=== PATIENT | female | born 1975 | race Caucasian/White ===

== ENCOUNTER → 2020-08-08 | Outpatient (CLI) | payer OTHER, SELFPAY ==
[2020-08-08 18:03] LABS: Anion Gap 7 (5-15); BUN 19 mg/dL (7-18); BUN/Creat Ratio 25.2 RATIO (10-20); Calcium,Total 8.7 mg/dL (8.5-10.1); Chloride 106 mmol/L (98-107); Creatinine, Serum 0.76 mg/dL (0.55-1.02); EST Glomerular Filtration Rate 89 mL/min (>60); Est Glom Filt Rate - Afr Amer 108 mL/min (>60); Glucose 85 mg/dL (74-106); Potassium 3.8 mmol/L (3.5-5.1); Sodium Level 141 mmol/L (136-145)
== END | disposition home or self-care (01) ==
LOC: MFPLAB 15:32
PROVIDERS: PCP Family Medicine; Referring Provider Family Medicine; Visit Provider Family Medicine
DX: I10 Essential (primary) hypertension (principal)
CPT/HCPCS: 36415; 80048

== ENCOUNTER → 2020-11-03 | Outpatient (CLI) | payer OTHER, SELFPAY | END | disposition home or self-care (01) | PROVIDERS: PCP Family Medicine; Referring Provider Registered Nurse; Visit Provider Registered Nurse | DX: B34.9 Viral infection, unspecified (principal) | CPT/HCPCS: 87635; U0003 ==

== ENCOUNTER → 2021-10-03 08:23 | Outpatient (CLI) | payer OTHER, SELFPAY ==
[2021-10-03 10:15] LABS: Hematocrit 40.3 % (37-47); Hemoglobin 13.1 g/dL (12.0-15.0); Mean Corp Hgb Conc 32.5 g/dL (32-36); Mean Corpuscular Hgb 29.5 pg (27.0-32.0); Mean Corpuscular Volume 90.8 fL (81-99); Mean Platelet Vol. 12.3 fl (6.2-12.0); Platelet Count 185 K/mm3 (150-450); RBC Distribution Width CV 12.6 % (11.6-14.6); RBC Distribution Width SD 42.1 fl (35.1-43.9); Red Blood Count 4.44 M/mm3 (4.2-5.4)
[2021-10-03 10:43] LABS: Anion Gap 5 (5-15); BUN 25 mg/dL (7-18); BUN/Creat Ratio 35.2 RATIO (10-20); Calcium,Total 9.1 mg/dL (8.5-10.1); Chloride 112 mmol/L (98-107); Cholesterol 168 mg/dL (200); Creatinine, Serum 0.71 mg/dL (0.55-1.02); EST Glomerular Filtration Rate 95 mL/min (>60); Est Glom Filt Rate - Afr Amer 115 mL/min (>60); Glucose 108 mg/dL (74-106); High Density Lipoprotein 35 mg/dL; Potassium 3.8 mmol/L (3.5-5.1); Sodium Level 143 mmol/L (136-145); Thyroid Stim Hormone (TSH) 1.43 uIU/mL (0.358-3.74); Triglycerides 135 mg/dL; Very Low Density Lipoprotein 27 mg/dL (5-40)
[2021-10-03 11:37] LABS: Vitamin D,25 Hydroxy 21.7 ng/mL
== END ==
PROVIDERS: PCP Family Medicine; Referring Provider Family Medicine; Visit Provider Family Medicine
DX: I10 Essential (primary) hypertension (principal); D64.9 Anemia, unspecified; Z13.29 Encounter for screening for other suspected endocrine disorder; Z13.220 Encounter for screening for lipoid disorders; Z13.21 Encounter for screening for nutritional disorder
CPT/HCPCS: 36415; 80048; 80061; 82306; 84443; 85027

== ENCOUNTER 2022-01-07 15:37 | Outpatient (CLI) | payer OTHER, SELFPAY ==
[2022-01-11 16:56] LABS: HPV Reflexed? NOT INDICATED
== END 2022-01-07 23:59 | disposition home or self-care (01) ==
LOC: LABSPEC 15:38
PROVIDERS: PCP Family Medicine; Visit Provider Nurse Practitioner Family
DX: Z12.4 Encounter for screening for malignant neoplasm of cervix (principal)
CPT/HCPCS: 88175; G0145

== ENCOUNTER 2022-01-24 07:58 | Outpatient (CLI) | payer OTHER, SELFPAY ==
--- NOTE | 2022-01-24 08:02 | BI_ITS ---
MAMMOGRAPHY - BILATERAL SCREENING REASON FOR EXAM: Female, 46 years old. Routine annual screening examination. PERTINENT HISTORY: Non-contributory. TECHNIQUE: Digital bilateral breast vinay (3D mammographic acquisition) in the CC and MLO projections. 2-D mediolateral oblique (MLO) and craniocaudad (CC) views of both breasts were obtained. CAD: Full Field Digital Mammography with Computer Added Detection was performed. COMPARISON: No comparison mammograms available at this time. If any prior films become available, an addendum to this report can be generated. FINDINGS: Breast Composition: The breasts are heterogeneously dense, which may obscure small masses. There are no dominant masses or suspicious calcifications. Benign-appearing bilateral axillary lymph nodes. No other significant abnormalities are identified. There has been no significant change since the prior study. BI/SCRN MAMM (CAD)W/VINAY BILAT IMPRESSION: Stable bilateral screening mammogram. Yearly follow-up mammogram recommended. (A) ASSESSMENT CATEGORY: BIRADS Category 2: Benign. A letter regarding these results will be sent to the patient by the facility within 30 days. Approximately 10% of breast cancers are not detected by mammography. A normal mammogram should not delay biopsy of a clinically suspicious abnormality. [id number] Electronically Signed: Syed Goldman MD at 8:59 EDT ,
== END 2022-01-24 23:59 | disposition home or self-care (01) ==
LOC: OPBI 07:59
PROVIDERS: PCP Family Medicine; Referring Provider Nurse Practitioner Family; Visit Provider Nurse Practitioner Family
DX: Z12.31 Encounter for screening mammogram for malignant neoplasm of breast (principal)
CPT/HCPCS: 77063; 77067

== ENCOUNTER 2022-04-29 16:42 | Emergency (ER) | payer OTHER, SELFPAY ==
[2022-04-29 16:43] VITALS: BP 182/95; PULSE 68; RESP 14; TEMP 36.9; O2SAT 100; BMI 30.8
--- NOTE | 2022-04-29 17:13 | EKG12_ITS ---
Test Reason : sob Blood Pressure : / mmHG Vent. Rate : 063 BPM Atrial Rate : 063 BPM P-R Int : 182 ms QRS Dur : 098 ms QT Int : 436 ms P-R-T Axes : 046 -05 -09 degrees QTc Int : 446 ms Normal sinus rhythm Minimal voltage criteria for LVH, may be normal variant ( Cipriano product ) Poor R wave progression Confirmed by TAMMY WHITAKER, CHARO ([id number]), editorial intern MADDIE HUBER ([id number]) on 05/01/2022 10:45:11 AM Referred By: Confirmed By:CHARO MUNOZ MD
--- NOTE | 2022-04-29 17:42 | EDS_ITS ---
HPI History of Present Illness Chief Complaint: Dizziness Narrative Narrative: 46 year old female presenting with vertiginous dizziness. She states it started acutely while sitting at her desk. She states she went to the bathroom and when she sat down the dizziness became worse. She states it is improved now. No acute on set headache. No fever, chills, neck pain or stiffness. She denies chest pain or shortness of breath. No vision changes. PFSH PFS Medical History Anxiety HTN (hypertension) Home Medications meclizine 25 mg tablet 25 mg PO TID PRN dizziness #30 tabs 04/29/22 [Rx Last Taken Unknown] promethazine 12.5 mg tablet 12.5 mg PO TID PRN nausea and vomiting #30 tabs 04/29/22 [Rx Last Taken Unknown] Allergy/AdvReac Type Severity Reaction Status Date / Time No Known Allergies Allergy Verified 04/29/22 16:45 Social History Smoking Status: Never smoker ROS ROS ED Constitutional Constitutional ED: Denies chills or fever(s) Eyes Eyes: Denies change in vision or diplopia ENT ENT ED: Denies rhinorrhea or sore throat Cardiovascular Cardiovascular: Denies chest pain or palpitations Respiratory/Chest Respiratory/Chest: Denies cough or dyspnea Gastrointestinal Gastrointestinal: Reports nausea; Denies abdominal pain, constipation or diarrhea Genitourinary Genitourinary ED: Denies dysuria or hematuria Musculoskeletal Musculoskeletal: Denies arthralgias, back pain or neck pain Integumentary Denies abscess or Abrasions Neurologic Neurologic: Reports headache(s) and other Details: dizziness Psychiatric Psychiatric: Denies anxiety or depression EXAM Physical Exam Const Vital Signs: 04/29/22 16:43 04/29/22 16:46 04/29/22 18:35 Temperature 98.5 F 98.9 F Temperature Source Temporal Pulse Rate 68 88 Respiratory Rate 14 14 Respiratory Pattern Normal Blood Pressure 182/95 H 128/78 H Blood Pressure Mean 124 Pulse Ox 100 100 Oxygen Delivery Method Room Air Positive well nourished General Appearance ED: NAD; Negative for pallor HEENT Reports moist mucous membranes HEENT Narrative: Nystagmus and vertiginous dizziness with camilla hallpike Negative for trauma Eyes PERRL and EOMs intact bilaterally Chest Wall inspection of chest normal Resp normal respiratory effort Cardio regular rate and regular rhythm GI normal to inspection, nondistended, normoactive bowel sounds Neuro oriented x3, CN's II-XII intact bilaterally and no sensory deficits noted Sensorium / Orientation: alert Motor Exam: strength 5/5 throughout Psych mental status grossly normal Skin no rashes or lesions noted and no wounds General Skin Exam: Negative for jaundice or pallor MDM MDM MDM Narrative Medical decision making narrative: Patient presenting with dizziness. On examination she has positive Camilla- Hallpike. Patient treated with meclizine and Phenergan. On reevaluation her dizziness is resolved. She is ambulating back and forth to the bathroom. I do not believe she needs any blood work or imaging. Patient counseled she has benign positional vertigo. She will follow-up with her PCP to ensure resolution. Impression: 1. Benign positional vertigo Discharge Plan Triage Chief Complaint: Dizziness ED Provider: Donovan Mercado Dx/Rx/DC Orders Instructions: ED BPV Vertigo Prescriptions: New meclizine 25 mg tablet 25 mg PO TID PRN (Reason: dizziness) Qty: 30 0RF promethazine 12.5 mg tablet 12.5 mg PO TID PRN (Reason: nausea and vomiting) Qty: 30 0RF Rx Instructions: 3 doses during day; last dose no later than 4 hr before bedtime Primary Care Provider: Dinesh Bowen Referrals: Dinesh Bowen MD [Primary Care Provider] - Disposition Disposition: Home, Self Care Discharge Date/Time: 04/29/22 18:36
[2022-04-29] MEDS: Meclizine HCl 25 MG Tablet PO (17:53)
[2022-04-29] MEDS: proMETHazine 25 MG Tablet 12.5 MG PO (17:53)
[2022-04-29 18:35] VITALS: BP 128/78; PULSE 88; RESP 14; TEMP 37.2; O2SAT 100
== END 2022-04-29 18:36 | disposition home or self-care (01) ==
PROVIDERS: Emergency Provider Student in an Organized Health Care Education/Training Program; PCP Family Medicine; Visit Provider Student in an Organized Health Care Education/Training Program
DX: H81.10 Benign paroxysmal vertigo, unspecified ear (principal); I10 Essential (primary) hypertension; Z79.899 Other long term (current) drug therapy
CPT/HCPCS: 93005; 99283

== ENCOUNTER → 2023-07-10 | Outpatient (CLI) | payer OTHER, SELFPAY ==
--- NOTE | 2023-07-10 16:27 | US_ITS ---
STUDY: THYROID ULTRASOUND REASON FOR EXAM: Female, 47 years old. NODULE-RT TECHNIQUE: Ultrasound evaluation of the thyroid was performed with real-time and static crook-scale imaging. COMPARISON: None. FINDINGS: RIGHT LOBE: The right lobe of the thyroid gland is enlarged and measures 5.2 cm x 2.7 cm x 2.3 cm. There is a homogeneous echotexture. There is a 3.4 cm x 3.1 cm x 2 cm septated cystic nodule with thick rim. Biopsy is recommended. LEFT LOBE: The left lobe of the thyroid gland measures 4.9 cm x 1.5 cm x 1.5 cm. There is a homogeneous echotexture. There are no demonstrated solid, cystic or complex lesions. ISTHMUS: The isthmus measures 1 mm. The regional lymph nodes are normal. US/Thyroid IMPRESSION: Enlarged right lobe of the thyroid. 5.2 cm x 2.77 x 2.3 cm nodular cystic nodule with a thickened rim. Tissue sample is recommended. Electronically Signed: Syed Goldman MD at 14:53 EDT ,
== END | disposition home or self-care (01) ==
LOC: US 16:25
PROVIDERS: PCP Family Medicine; Referring Provider Family Medicine; Visit Provider Family Medicine
DX: E04.1 Nontoxic single thyroid nodule (principal)
CPT/HCPCS: 76536

== ENCOUNTER → 2023-07-14 | Outpatient (CLI) | payer OTHER, SELFPAY ==
[2023-07-14 10:54] LABS: Vitamin D,25 Hydroxy 46.8 ng/mL
[2023-07-14 11:28] LABS: Anion Gap 7 (5-15); BUN 18 mg/dL (7-18); BUN/Creat Ratio 26.5 RATIO (10-20); Calcium,Total 8.4 mg/dL (8.5-10.1); Chloride 107 mmol/L (98-107); Cholesterol 170 mg/dL (200); Creatinine, Serum 0.68 mg/dL (0.55-1.02); EST Glomerular Filtration Rate 99 mL/min (>60); Est Glom Filt Rate - Afr Amer 120 mL/min (>60); Glucose 99 mg/dL (74-106); High Density Lipoprotein 33 mg/dL; Potassium 3.7 mmol/L (3.5-5.1); Sodium Level 138 mmol/L (136-145); Thyroid Stim Hormone (TSH) 1.49 uIU/mL (0.358-3.74); Triglycerides 147 mg/dL; Very Low Density Lipoprotein 29 mg/dL (5-40)
== END | disposition home or self-care (01) ==
LOC: MFPLAB 08:26
PROVIDERS: PCP Family Medicine; Visit Provider Family Medicine
DX: E04.1 Nontoxic single thyroid nodule (principal); Z13.1 Encounter for screening for diabetes mellitus; Z13.220 Encounter for screening for lipoid disorders; E55.9 Vitamin D deficiency, unspecified
CPT/HCPCS: 36415; 80048; 80061; 82306; 84439; 84443

== ENCOUNTER → 2023-08-06 | Outpatient (CLI) | payer OTHER, SELFPAY ==
--- NOTE | 2023-08-05 | FLU_PTH ---
PATIENT: MADHURI EDEN LOC: [facility] U#:[id number] AGE/SX: 48/F ROOM: RE08/06/[address]: Dr. Kendall Wilson MD : 1975 BED: DIS: 08/06/2023 SPEC #: [id number] RECD: 08/06/23 09:15 STATUS: [place] REGloria #: [id number] DARLYN: 08/05/23 00:[address]: Kendall Wilson DEPT: CYTOLOGY RECD BY: Paxton Benson ENTERED: 08/06/23 09:16 SP TYPE: Fluid OTHR DR: Dr. Richard Bowen MD Tissues: A - Thyroid gland, NOS B - Thyroid gland, NOS C - Thyroid gland, NOS Procedures: Special Stain Group II Surgery Specimen Level IV Cytospin Fluid HEADER OPERATION: Fine needle aspiration, right thyroid nodule PRE-OP DIAGNOSIS: Right thyroid nodule TISSUE SUBMITTED: A - Right thyroid nodule fluid, B - Right thyroid nodule fluid, C - Right thyroid nodule x4 slides DIAGNOSIS CYTOLOGY A. Fine needle aspiration, right thyroid nodule (cytospin and cell block): Negative for malignant cells. See comment. B. Fine needle aspiration, right thyroid nodule (cytospin and cell block): Negative for malignant cells. See comment. C. Fine needle aspiration, right thyroid nodule (smears): Consistent with benign follicular nodule ([place] Category II). See comment. AM:inocencio 08/07/2023 COMMENT A. The specimen contains rare macrophages and scattered acute and chronic inflammatory cells. Follicular cells are not present. Clinical correlation is suggested. B. The specimen contains rare follicular cells. Clinical correlation is suggested. C. The [place] System for thyroid diagnostic categorization was used in the evaluation of this case. CYTOLOGY STUDY Slides are reviewed. CYTOLOGY GROSS A - Received is 35 ml of red cloudy fluid labeled with the patient's name and and designated per the requisition as right thyroid nodule. Submitted for cytology preparation including cell block. B - Received is 35 ml of red cloudy fluid labeled with the patient's name and and designated per the requisition as right thyroid nodule. Submitted for cytology preparation including cell block. C - Received are four smears labeled with the patient's name and designated per the requisition as right thyroid nodule. Submitted for staining. / inocencio 08/06/2023 TC:5 CPT: 78502 x2, 21424 x3
== END | disposition home or self-care (01) ==
PROVIDERS: PCP Family Medicine; Referring Provider Surgery; Visit Provider Surgery
DX: E04.1 Nontoxic single thyroid nodule (principal)
CPT/HCPCS: 88108; 88305; 88313

== ENCOUNTER → 2024-07-20 | Outpatient (CLI) | payer OTHER, SELFPAY ==
--- NOTE | 2024-07-20 08:45 | US_ITS ---
STUDY: THYROID ULTRASOUND REASON FOR EXAM: Female, 48 years old. nodule TECHNIQUE: Ultrasound evaluation of the thyroid was performed with real-time and static crook-scale imaging. COMPARISON: 07/10/2023 FINDINGS: RIGHT LOBE: The right lobe of the thyroid gland measures 5.5 x 2.5 x 2.2 cm. There is a homogeneous echotexture. Nodule 1: No change in the 28 x 24 x 21 mm mixed cystic and solid hypoechoic wider than tall ill-defined margins nodule with no echogenic foci (TR 3) in the right lobe for which ultrasound-guided biopsy is recommended if never performed. LEFT LOBE: The left lobe of the thyroid gland measures 4.4 x 1.3 x 1.4 cm. There is a homogeneous echotexture. There are no demonstrated solid, cystic or complex lesions. ISTHMUS: The isthmus measures 2 mm thick. . The regional lymph nodes are normal. US/Thyroid IMPRESSION: No change in dominant nodule in the right lobe for which ultrasound-guided biopsy is recommended if never performed. Follow-up ultrasound is recommended in 1 year. Electronically Signed: Barney Duque MD at 8:42 EDT ,
== END | disposition home or self-care (01) ==
PROVIDERS: PCP Family Medicine; Referring Provider Surgery; Visit Provider Surgery
DX: E04.1 Nontoxic single thyroid nodule (principal)
CPT/HCPCS: 76536

== ENCOUNTER → 2024-07-29 | Outpatient (CLI) | payer OTHER, SELFPAY ==
--- NOTE | 2024-07-29 07:59 | BI_ITS ---
MAMMOGRAPHY - BILATERAL SCREENING REASON FOR EXAM: Female, 48 years old. Routine annual screening examination. PERTINENT HISTORY: Non-contributory. TECHNIQUE: Digital bilateral breast vinay (3D mammographic acquisition) in the CC and MLO projections. 2-D mediolateral oblique (MLO) and craniocaudad (CC) views of both breasts were obtained. CAD: Full Field Digital Mammography with Computer Added Detection was performed. COMPARISON: Comparison is made with prior study January 24, 2022. FINDINGS: Breast Composition: The breasts are heterogeneously dense, which may obscure small masses. There are no dominant masses or suspicious calcifications. Stable bilateral fat containing axillary lymph nodes. No other significant abnormalities are identified. There has been no significant change since the prior study. BI/SCRN MAMM (CAD)W/VINAY BILAT IMPRESSION: Stable bilateral screening mammogram. Yearly follow-up mammogram recommended. (A) ASSESSMENT CATEGORY: BIRADS Category 2: Benign. A letter regarding these results will be sent to the patient by the facility within 30 days. Approximately 10% of breast cancers are not detected by mammography. A normal mammogram should not delay biopsy of a clinically suspicious abnormality. [id number] Electronically Signed: Syed Goldman MD at 8:54 EDT ,
== END | disposition home or self-care (01) ==
LOC: OPBI 07:57
PROVIDERS: PCP Family Medicine; Referring Provider Family Medicine; Visit Provider Family Medicine
DX: Z12.31 Encounter for screening mammogram for malignant neoplasm of breast (principal)
CPT/HCPCS: 77063; 77067

== ENCOUNTER → 2025-01-18 | Outpatient (CLI) | payer OTHER, SELFPAY ==
[2025-01-18 13:07] LABS: ALB/GLOB Ratio 1.6 RATIO (0.9-2.4); AST(SGOT) 20 U/L (<=31); Alanine Aminotransfer ALT/SGPT 16 U/L (<=34); Albumin, Serum 4.1 g/dL (3.5-5.0); Alkaline Phosphatase 74 U/L (35-104); Anion Gap 10 (5-15); BUN 18 mg/dL (4-19); BUN/Creat Ratio 24.7 RATIO (10-20); Calcium,Total 9.1 mg/dL (7.6-11.0); Carbon Dioxide 23.9 mmol/L (21.0-32.0); Chloride 106 mmol/L (98-108); Cholesterol 177 mg/dL (<=200); Creatinine, Serum 0.72 mg/dL (0.70-1.20); EST Glomerular Filtration Rate 104 (>60); Globulin 2.6 g/dL (2.2-4.2); Glucose 106 mg/dL (70-99); High Density Lipoprotein 37 mg/dL; Low Density Lipoprotein Calc. 109 mg/dL; Potassium 4.1 mmol/L (3.3-5.1); Protein, Total 6.7 g/dL (5.9-8.4); Sodium Level 140 mmol/L (133-145); Total Bilirubin 0.46 mg/dL (0.00-1.30); Triglycerides 158 mg/dL; Very Low Density Lipoprotein 32 mg/dL (5-40); Vitamin D,25 Hydroxy 18.9 ng/mL (30-100)
== END | disposition home or self-care (01) ==
LOC: MTLAB 08:08
PROVIDERS: PCP Family Medicine; Referring Provider Family Medicine; Visit Provider Family Medicine
DX: E04.1 Nontoxic single thyroid nodule (principal); I10 Essential (primary) hypertension
CPT/HCPCS: 36415; 80053; 80061; 82306; 84439; 84443; 84481

== ENCOUNTER → 2025-08-02 | Outpatient (CLI) | payer OTHER, SELFPAY ==
[2025-08-02 19:27] LABS: Free T3 2.9 pg/mL (2.18-3.98); Vitamin D,25 Hydroxy 30.0 ng/mL (30-100)
== END | disposition home or self-care (01) ==
LOC: MFPLAB 16:51
PROVIDERS: PCP Family Medicine; Visit Provider Family Medicine
DX: E04.1 Nontoxic single thyroid nodule (principal)
CPT/HCPCS: 36415; 82306; 84439; 84481

== ENCOUNTER → 2025-08-09 | Outpatient (CLI) | payer OTHER, SELFPAY ==
--- NOTE | 2025-08-09 16:24 | BI_ITS ---
EXAM: SCRN MAMM (CAD)W/VINAY BILAT DATE: 08/09/2025 CLINICAL HISTORY: F, Age 50 y/o , SCREEN No family history. TECHNIQUE: Procedure Code: [id number] Modality: MG Procedure: SCRN MAMM (CAD)W/VINAY BILAT COMPARISON: Prior exam(s) dated July 29, 2024.. FINDINGS: TISSUE DENSITY: The breasts are heterogeneously dense, which may obscure small masses. Bilateral Breast Mammographic Findings: There is a 9.4 mm well-defined nodule in the upper lateral aspect of the left breast. Sonographic correlation recommended. No cluster of microcalcification is seen. BI/SCRN MAMM (CAD)W/VINAY BILAT IMPRESSION: 9.4 mm well-defined nodule in the upper lateral aspect of the left breast as de scribed above. Sonographic correlation recommended. OVERALL FINAL ASSESSMENT BI-RADS 0: INCOMPLETE - NEED ADDITIONAL IMAGING EVALUATION. RECOMMENDATION: Ultrasound Recommended Additional Recommendation none A letter with findings and recommendations will be mailed to the patient. Reading Location: [place] [id number]
== END | disposition home or self-care (01) ==
LOC: OPBI 16:23
PROVIDERS: PCP Family Medicine; Referring Provider Family Medicine; Visit Provider Family Medicine
DX: Z12.31 Encounter for screening mammogram for malignant neoplasm of breast (principal)
CPT/HCPCS: 77063; 77067

== ENCOUNTER → 2025-08-15 | Outpatient (CLI) | payer OTHER, SELFPAY ==
--- NOTE | 2025-08-15 13:39 | US_ITS ---
PROCEDURE: BREAST LIMITED UNILATERAL 08/15/2025 REASON FOR EXAM: F, Age 50 y/o , ABNORMAL MAMMOGRAM Mass seen in the upper-outer quadrant of the left breast, on her most recent mammogram study. Evaluate. COMPARISON: Mammogram studies dated 08/09/2025, 08/08/2024, and 01/24/2022. TECHNIQUE: Procedure Code: USBRSTLIMIT Modality: US Procedure: BREAST LIMITED UNILATERAL FINDINGS: There is a solid, smoothly marginated, hypoechoic mass in the left breast at the 1 o'clock, 6 cm from nipple position measuring 11 x 8 x 4 mm. This mass has an echogenic component. The mass is wider than it is tall and does not produce any posterior shadowing. It is most compatible with an intramammary lymph node and does correlate to the mass seen on the mammogram. There is a very minimal amount of blood flow to the mass. The mass is most compatible with an intramammary lymph node. US/Breast Limited Unilateral IMPRESSION: There is a solid, smoothly marginated, hypoechoic mass in the left breast at th e 1 o'clock, 6 cm from nipple position measuring 11 x 8 x 4 mm. This mass has an echogenic component. The mass is wider than it is tall and does not produce any posterior shadowing. It is most compatible with an intramammary lymph node and does is[place] elate to the mass seen on the mammogram. There is a very minimal amount of blood flow to the mass. The mass is most compatible wi th an intramammary lymph node. BI-RADS 2: BENIGN RECOMMENDATION: Routine annual follow-up in 1 Year Reading Location: [id number]
== END | disposition home or self-care (01) ==
LOC: OPUS 13:32
PROVIDERS: PCP Family Medicine; Referring Provider Family Medicine; Visit Provider Family Medicine
DX: R92.8 Other abnormal and inconclusive findings on diagnostic imaging of breast (principal); N63.21 Unspecified lump in the left breast, upper outer quadrant
CPT/HCPCS: 76642

== ENCOUNTER 2025-09-14 19:14 | Emergency (ER) | payer OTHER, SELFPAY ==
[2025-09-14 19:15] VITALS: BP 150/96; PULSE 80; RESP 16; TEMP 36.7; O2SAT 99; BMI 29.3
--- OUTSIDE RECORDS SUMMARY | 2025-09-14 19:53 | XMS RPT_ITS | CCD ---
Author Organization [facility] Inform ion Partnership [facility] Care Team Providers Care Top Closer Name Role Phone Dr. Dinesh Bowen Primary Care Provider Dr. Dinesh Bowen Referring Provider Ellen PICHARDO, PA Garima Gross Attending Provider Dr. Kendall Wilson Attending Provider Andrés WHITAKER, Dr. Ramos Primary Care Provider Andrés WHITAKER, Dr. Ramos Attending Provider Dr. Richard Bowen MD Referring Provider [phone] Richard Bowen Attending Unavailable Richard Bowen Referring Unavailable Richard Bowen Primary Care Unavailable Richard Bowen Attending Unavailable Richard Bowen Primary Care Unavailable Richard Bowen Attending Unavailable Richard Bowen Referring Unavailable Richard Bowen Primary Care Unavailable Richard Bowen Referring Unavailable Richard Bowen Primary Care Unavailable Richard Bowen Attending Unavailable Allergies Allergy Classification Reported Allergen(s) Allergy Type Date of Onset Reaction(s) Facility (2 sources) Lisinopril Drug Allergy 08-05-2023 Other [facility] Comment on above: Cough (1 source) Lisinopril Drug Allergy 08-05-2024 [facility] Repository Medications Current Medications Medication Drug Class(es) Dates Sig (Normalized) Sig (Original) atenolol 25 mg oral tablet (3 sources) beta-Adrenergic Avery Start: 07-05-2023 Atenolol 25 mg tablet Active mg PO July 05, 2023 12:00am Start: 07-05-2023 Atenolol Activ e MG PO July 05, 2023 12:00am citalopram 20 mg oral tablet (3 sources) Serotonin Reuptake Inhibitor Start: 07-05-2023 Citalopram 20 mg tablet Active mg PO July 05, 2023 12:00am Start: 07-05-2023 Citalopram Act colette MG PO July 05, 2023 12:00am irbesartan 300 mg oral tablet (2 sources) Angiotensin 2 Receptor Avery Start: 08-05-2023 take 1 tablet by mouth once daily Irbesartan 300 mg tablet Active 300 mg PO DAILY August 05, 2023 12:00am Completed/Discontinued Medications Medication Drug Class(es) Dates Sig (Normalized) Sig (Original) amoxicillin 500 mg oral tablet (3 sources) Penicillin-class Antibacterial Start: 07-05-2023 End: 08-05-2024 take 1 tablet by mouth twice daily Amoxicillin 500 mg tablet Discontinued 500 mg PO TWICE A DAY July 05, 2023 12:00am August 05, 2024 8:51am meclizine hydrochloride 25 mg oral tablet (4 sources) Antiemetic Start: 04-29-2022 End: 07-05-2023 take 1 tablet by mouth three times daily as needed for dizziness Meclizine 25 mg tablet Discontinued 25 mg PO THREE TIMES A DAY as needed for dizziness April 29, 2022 6:27pm July 05, 2023 10:07am promethazine hydrochloride 12.5 mg oral tablet (4 sources) Phenothiazine Start: 04-29-2022 End: 07-05-2023 take 3 tablets by mouth three times daily as needed for nausea and vomiting Promethazine 12.5 mg tablet Discontinued 12.5 mg PO THREE TIMES A DAY as needed for nausea and vomiting April 29, 2022 12:00am July 05, 2023 10:07am 3 doses during day; last dose no later than 4 hr before bedtime Problems Problem Classification Problem Date Documented Date Episodic/Chronic Other screening for suspected conditions (not mental disorders or infectious disease) (2 sources) Other abnormal and inconclusive findings on diagnostic imaging of breast; Translations: [Encounter for screening mammogram for malignant neoplasm of breast] Onset: 08-15-2025 Episodic Other upper respiratory infections (5 sources) Streptococcal sore throat; Translations: [Streptococcal pharyngitis] 07-05-2023 Episodic Thyroid disorders (4 sources) Thyroid nodule; Translations: [Nontoxic single thyroid nodule] Onset: 08-12-2025 08-05-2023 Chronic Comment on above: Patient 49-year-old female, historically euthyroid from an endocrine standpoint, who presents for surveillance of a right TI-RADS 3 nodule. Radiology reports that there has been no change to patient's dominant right-sided nodule, however, when compared to patient's previous dimensions it is significantly decreased in size. Radiology suggests consideration of ultrasound-guided biopsy if not previously completed, but patient completed biopsy last year with a benign result. Combining this with her confirmation that there has been no compressive symptomology and the decreased size in the nodule, I am recommending abiding by traditional ACR follow-up criteria which would have patient repeat an ultrasound for ongoing surveillance in 2 years. Mrs. Gomez is happy to proceed with this plan. I have recommended obtaining updated thyroid function testing for this year and she suggest that she is due for lab work for Dr. Bowen anyhow. We will look to add this as part of that mix. Results Test Name Value Interpretation Reference Range Facility Breast Limited Unilateralon 08-15-2025 Breast Limited Unilateral [facility] [address] [place] [address] Breast Limited Unilateral MR#: [id number] Acct: [id number] Name: MADHURI GOMEZ Rep #: [id number] : 1975 F 50 From: Eboni Magaña PCP: Dr. Richard Bowen MD Status: REG CLI Study: Breast Limited Unilateral Date of Exam: Exam# [id number] Ordering Dr: Richard Bowen PROCEDURE: BREAST LIMITED UNILATERAL 08/15/2025 REASON FOR EXAM: F, Age 50 y/o , ABNORMAL MAMMOGRAM Mass seen in the upper-outer quadrant of the left breast, on her most recent mammogram study. Evaluate. COMPARISON: Mammogram studies dated 08/09/2025, 08/08/2024, and 01/24/2022. TECHNIQUE: Procedure Code: USBRSTLIMIT Modality: US Procedure: BREAST LIMITED UNILATERAL FINDINGS: There is a solid, smoothly marginated, hypoechoic mass in the left breast at the 1 o'clock, 6 cm from nipple position measuring 11 x 8 x 4 mm. This mass has an echogenic component. The mass is wider than it is tall and does not produce any posterior shadowing. It is most compatible with an intramammary lymph node and does correlate to the mass seen on the mammogram. There is a very minimal amount of blood flow to the mass. The mass is most compatible with an intramammary lymph node. US/Breast Limited Unilateral IMPRESSION: There is a solid, smoothly marginated, hypoechoic mass in the left breast at the 1 o'clock, 6 cm from nipple position measuring 11 x 8 x 4 mm. This mass has an echogenic component. The mass is wider than it is tall and does not produce any posterior shadowing. It is most compatible with an intramammary lymph node and does correlate to the mass seen on the mammogram. There is a very minimal amount of blood flow to the mass. The mass is most compatible with an intramammary lymph node. BI-RADS 2: BENIGN RECOMMENDATION: Routine annual follow-up in 1 Year Reading Location: [facility] CC: Dr. Richard Bowen MD Animal Laboratory Helper: Signed Normal [facility] SCRN MAMM (CAD)W/VINAY BILATo n 08-09-2025 SCRN MAMM (CAD)W/VINAY BILAT [facility] [address] [place] [address] SCRN MAMM (CAD)W/VINAY BILAT MR#: [id number] Acct: [id number] Name: MADHURI GOMEZ Rep #: [id number] : 1975 F 50 From: Syed durbin MD PCP: Dr. Richard Bowen MD Status: REG CLI Study: SCRN MAMM (CAD)W/VINAY BILAT Date of Exam: 07/21 11/13 Exam# [id number] Ordering Dr: Richard Bowen EXAM: SCRN MAMM (CAD)W/VINAY BILAT DATE: 08/09/2025 CLINICAL HISTORY: F, Age 50 y/o , SCREEN No family history. TECHNIQUE: Procedure Code: BISMWCADBTOM Modality: MG Procedure: SCRN MAMM (CAD)W/VINAY BILAT COMPARISON: Prior exam(s) dated July 29, 2024.. FINDINGS: TISSUE DENSITY: The breasts are heterogeneously dense, which may obscure small masses. Bilateral Breast Mammographic Findings: There is a 9.4 mm well-defined nodule in the upper lateral aspect of the left breast. Sonographic correlation recommended. No cluster of microcalcification is seen. BI/SCRN MAMM (CAD)W/VINAY BILAT IMPRESSION: 9.4 mm well-defined nodule in the upper lateral aspect of the left breast as described above. Sonographic correlation recommended. OVERALL FINAL ASSESSMENT BI-RADS 0: INCOMPLETE - NEED ADDITIONAL IMAGING EVALUATION. RECOMMENDATION: Ultrasound Recommended Additional Recommendation none A letter with findings and recommendations will be mailed to the patient. Reading Location: [place] [address] CC: Dr. Richard Bowen MD Animal Laboratory Helper: Signed Normal [facility] Free T3on 08-02-2025 Free T3 [Mass/Vol] 2.9 pg/mL Normal 2.18-3.98 [facility] Comment on above: Order Comment: Order Date: 01/21/24 Order Info: 0786-1 - CMP Order Info: [id number] - LIPID Order Info: 3016-3 - TSH Performed By: #### L 506.0400, L506.1001, L501.45492 #### [facility] [address] [place], [place], [address] T4 Free Directon 08-02-2025 T4 FREE DIRECT 1.10 ng/dL Normal 0.76-1.46 [facility] Comment on above: Order Comment: WRONG VITD ORDERED Order Date: 08/05/24 Order Info: 3051-0 - T3F Order Info: 3024-7 - T4F Performed By: #### L 506.0400 #### [facility] [address] [place], [address] Vitamin D,25 Hydroxyon 08-02 Vitamin D 25-OH 30.0 ng/mL Normal 30-100 [facility] Comment on above: Order Comment: WRONG VITD ORDERED Order Date: 08/05/24 Order Info: 3051-0 - T3F Order Info: 3024-7 - T4F Result Comment: Jeanette min D Status Deficiency: <20 ng/mL (50nmol/L) Insufficiency: 20-30 ng/mL (50-75 nmol/L) Sufficiency: 30-100 ng/mL (75-250 nmol/L) Toxicity: >100 ng/mL (>250 nmol/L) Performed By: #### L 506.1001 #### [facility] [place], [id number] Anion gap in Serum or Plasma Ordered By: Richard Bowen on 01-18-2025 Anion gap [Moles/Vol] 10 mmol/L 5-15 [facility] BUN/creatinine ratioOrdered By: Richard Bowen on 01-18-2025 Urea nitrogen/Creatinine [Mass ratio] 24.7 mg/mg High 10-20 [facility] Bilirubin, totalOrdered By: Richard Bowen on 01-18-2025 Bilirubin [Mass/Vol] 0.46 mg/dL 0.00-1.30 [facility] Calculated very low density lipoprotein (VLDL) cholesterol measurementOrdered By: Richard Bowen on 01-18-2025 VLDL Cholesterol 32 mg/dL 5-40 [facility] Carbon dioxide, total [Moles /volume] in Central venous bloodOrdered By: Richard Bowen on 01-18-2025 CO2 [Moles/Vol] 23.9 mmol/L 21.0-32.0 [facility] Chloride assayOrdered By: Renee Bowen on 01-18-2025 Chloride [Moles/Vol] 106 mmol/L 98-108 [facility] Comprehensive Metabolic Prof ilon 01-18-2025 Albumin [Mass/Vol] 4.1 g/dL Normal 3.5-5.0 [facility] Comment on above: Order Comment: Order Date: 01/21/24 Order Info: 0786-1 - CMP Order Info: [id number] - LIPID Order Info: 3015-12 - TSH Performed By: #### L [id number], L500.4100, L500.4050 #### [facility] [address] [place], [address] Albumin/Globulin [Mass ratio] 1.6 {ratio} Normal 0.9-2.4 [facility] Comment on above: Order Comment: Order Date: 01/21/24 Order Info: 785- - CMP Order Info: - LIPID Order Info: 3015-12 - TSH Performed By: #### L [id number], L500.4100, L500.4050 #### [facility] [address] [place], [address] ALK PHOS 74 U/L Normal 35-104 [facility] Comment on above: Order Comment: Order Date: 01/21/24 Order Info: 785-10 - CMP Order Info: - LIPID Order Info: [id number] - TSH Performed By: #### L [id number], L500.4100, L500.4050 #### [facility] [address] [place], [address] ALT [Catalytic activity/Vol] 16 U/L Normal <=34 [facility] Comment on above: Order Comment: Order Date: 01/21/24 Order Info: 785-10 - CMP Order Info: - LIPID Order Info: 3015-12 - TSH Performed By: #### L [id number], L500.4100, L500.4050 #### [facility] [address] [place], [address] AST [Catalytic activity/Vol] 20 U/L Normal <=31 [facility] Comment on above: Order Comment: Order Date: 01/21/24 Order Info: 0786-1 - CMP Order Info: [id number] - LIPID Order Info: 3015-12 - TSH Performed By: #### L [id number], L500.4100, L500.4050 #### [facility] [address] [place], [address] Bilirubin [Mass/Vol] 0.46 mg/dL Normal 0.00-1.30 [facility] Comment on above: Order Comment: Order Date: 01/21/24 Order Info: 785- - CMP Order Info: [id number] - LIPID Order Info: 3015-3 - TSH Performed By: #### L 501.9520, L500.4100, L500.4050 #### [facility] [address] [place], [address] BUN/CRE 24.7 RATIO High 10-20 [facility] Comment on above: Order Comment: Order Date: 01/21/24 Order Info: 785- - CMP Order Info: - LIPID Order Info: 3 - TSH Performed By: #### L [id number], L500.4100, L500.4050 #### [facility] [address] [place], [address] Calcium [Mass/Vol] 9.1 mg/dL Normal 7.6-11.0 [facility] Comment on above: Order Comment: Order Date: 01/21/24 Order Info: 785-10 - CMP Order Info: [id number] - LIPID Order Info: 3015-3 - TSH Performed By: #### L [id number], L500.4100, L500.4050 #### [facility] [address] [place], [address] Chloride [Moles/Vol] 106 mmol/L Normal 98-108 [facility] Comment on above: Order Comment: Order Date: 01/21/24 Order Info: 1 - CMP Order Info: - LIPID Order Info: 3015-3 - TSH Performed By: #### L [id number], L500.4100, L500.4050 #### [facility] [address] [place], [address] CO2 [Moles/Vol] 23.9 mmol/L Normal 21.0-32.0 [facility] Comment on above: Order Comment: Order Date: 01/21/24 Order Info: 785-10 - CMP Order Info: [id number] - LIPID Order Info: 3 - TSH Performed By: #### L 501.9520, L500.4100, L500.4050 #### [facility] [address] [place], [address] Creatinine [Mass/Vol] 0.72 mg/dL Normal 0.70-1.20 [facility] Comment on above: Order Comment: Order Date: 01/21/24 Order Info: 785-10 - CMP Order Info: - LIPID Order Info: 3015-12 - TSH Performed By: #### L 501.9520, L500.4100, L500.4050 #### [facility] [address] [place], [address] GAP 10 Normal 5-15 [facility] Comment on above: Order Comment: Order Date: 01/21/24 Order Info: 785-10 - CMP Order Info: - LIPID Order Info: 3015-12 - TSH Performed By: #### L 501.9520, L500.4100, L500.4050 #### [facility] [address] [place], [address] GFR/1.73 sq M.predicted among non-blacks MDRD (S/P/Bld) [Vol rate/Area] 104 mL/min/{1.73_m2} Normal >60 [facility] Comment on above: Order Comment: Order Date: 01/21/24 Order Info: 785-10 - CMP Order Info: - LIPID Order Info: 3 - TSH Result Comment: mL/m in/1.73m2 CKD-EPI Creatinine Equation (2020) Performed By: #### L [id number], L500.4100, L500.4050 #### [facility] [address] [place], [address] Globulin (S) [Mass/Vol] 2.6 g/dL Normal 2.2-4.2 [facility] Comment on above: Order Comment: Order Date: 01/21/24 Order Info: 785-10 - CMP Order Info: [id number] - LIPID Order Info: 3 - TSH Performed By: #### L [id number], L500.4100, L500.4050 #### [facility] [address] [place], [address] Glucose [Mass/Vol] 106 mg/dL High 70-99 [facility] Comment on above: Order Comment: Order Date: 01/21/24 Order Info: 785-10 - CMP Order Info: - LIPID Order Info: 3015-12 - TSH Performed By: #### L 501.9520, L500.4100, L500.4050 #### [facility] [address] [place], [address] Potassium [Moles/Vol] 4.1 mmol/L Normal 3.3-5.1 [facility] Comment on above: Order Comment: Order Date: 01/21/24 Order Info: 785-10 - CMP Order Info: - LIPID Order Info: 3 - TSH Performed By: #### L 501.9520, L500.4100, L500.4050 #### [facility] [address] [place], [address] Sodium [Moles/Vol] 140 mmol/L Normal 133-145 [facility] Comment on above: Order Comment: Order Date: 01/21/24 Order Info: 785-10 - CMP Order Info: - LIPID Order Info: 3 - TSH Performed By: #### L 501.9520, L500.4100, L500.4050 #### [facility] [address] [place], [address] T PROT 6.7 g/dL Normal 5.9-8.4 [facility] Comment on above: Order Comment: Order Date: 01/21/24 Order Info: 0786-1 - CMP Order Info: [id number] - LIPID Order Info: 3016-3 - TSH Performed By: #### L 501.9520, L500.4100, L500.4050 #### [facility] [address] [place], [address] Urea nitrogen [Mass/Vol] 18 mg/dL Normal 4-19 [facility] Comment on above: Order Comment: Order Date: 01/21/24 Order Info: 0786-1 - CMP Order Info: [id number] - LIPID Order Info: [id number] - TSH Performed By: #### L 501.9520, L500.4100, L500.4050 #### [facility] [address] [place], [address] Free T3on 01-18-2025 Free T3 [Mass/Vol] 3.0 pg/mL Normal 2.18-3.98 [facility] Comment on above: Order Comment: Order Date: 01/21/24 Order Info: 0786- - CMP Order Info: [id number] - LIPID Order Info: 3016-3 - TSH Performed By: #### L 506.0400, L506.1001, L501.30776 #### [facility] [address] [place], [address] Free [id number] By: Reyes Bowen on 01-18-2025 Free Triiodothyronine (T3) pg/dL 3.0 pg/mL 2.18-3.98 [facility] GFR/1.73 sq M.predicted rae g non-blacks MDRD (S/P/Bld) [Vol rate/Area]Ordered By: Richard Bowen on 01-18-2025 Estimated GFR (MDRD) Non-Af Amer 104 >60 [facility] Comment on above: mL/min/1.73m2 CKD-EP I Creatinine Equation (2020) L506.1001on 01-18-2025 Vitamin D 25-OH 18.9 ng/mL Low 30-100 [facility] Comment on above: Order Comment: Order Date: 01/21/24 Order Info: 0786-1 - CMP Order Info: [id number] - LIPID Order Info: 3015-12 - TSH Result Comment: Jeanette min D Status Deficiency: <20 ng/mL (50nmol/L) Insufficiency: 20-30 ng/mL (50-75 nmol/L) Sufficiency: 30-100 ng/mL (75-250 nmol/L) Toxicity: >100 ng/mL (>250 nmol/L) Performed By: #### L 506.0400, L506.1001, L501.54440 #### [facility] [address] [place], [place], [id number] LDL calc ser/plasOrdered By: Richard Bowen on 01-18-2025 LDL Cholesterol, Calculated 109 mg/dL [facility] Comment on above: Brbfskrzcx=006-157 m g/dL & Higher Wyrz=241 mg/dL or greater Laboratory - Chemistry and C hemistry - challengeOrdered By: Richard Bowen on 01-18-2025 AST [Catalytic activity/Vol] 20 U/L <32 [facility] Lipid Profileon 01-18-2025 CHOL:HDL 4.80 Normal [facility] Comment on above: Order Comment: Order Date: 01/21/24 Order Info: 0786-1 - CMP Order Info: - LIPID Order Info: 3015-12 - TSH Performed By: #### L 501.9520, L500.4100, L500.4050 #### [facility] [address] [place], [place], [address] Cholesterol [Mass/Vol] 177 mg/dL Normal <=200 [facility] Comment on above: Order Comment: Order Date: 01/21/24 Order Info: 0786-1 - CMP Order Info: - LIPID Order Info: 3015-12 - TSH Result Comment: Chol esterol level, Desirable <200 mg/dL Borderline high cholesterol 200-239 mg/dL High cholesterol >=240 mg/dL Recommendations of the NCEP Adult Treatment Panel for the following risk-cutoff thresholds for the [place] population. Performed By: #### L 501.9520, L500.4100, L500.4050 #### [facility] [address] [place], [address] Cholesterol in HDL [Mass/Vol] 37 mg/dL Low [facility] Comment on above: Order Comment: Order Date: 01/21/24 Order Info: 0786- - CMP Order Info: - LIPID Order Info: 3015-12 - TSH Result Comment: Emily onal Cholesterol Education Program (NCEP) guidelines: <40 mg/dL: Low HDL-cholesterol (major risk factor for CHD) >= 60 mg/dL: High HDL-cholesterol (negative risk factor for CHD) HDL-cholesterol is affected by a number of factors, e.g. smoking, exercise, hormones, sex and age. Performed By: #### L 501.9520, L500.4100, L500.4050 #### [facility] [address] [place], [address] Cholesterol in LDL [Mass/Vol] 109 mg/dL Normal [facility] Comment on above: Order Comment: Order Date: 01/21/24 Order Info: 0786 - CMP Order Info: [id number] - LIPID Order Info: 3015-12 - TSH Result Comment: Bord hluunm=159-451 mg/dL Higher Ukxe=737 mg/dL or greater Performed By: #### L 501.9520, L500.4100, L500.4050 #### [facility] [address] [place], [address] Cholesterol in VLDL [Mass/Vol] 32 mg/dL Normal 5-40 [facility] Comment on above: Order Comment: Order Date: 01/21/24 Order Info: 0786- - CMP Order Info: [id number] - LIPID Order Info: 3015-12 - TSH Performed By: #### L 501.9520, L500.4100, L500.4050 #### [facility] [address] [place], [place], [address] Triglyceride [Mass/Vol] 158 mg/dL Normal [facility] Comment on above: Order Comment: Order Date: 01/21/24 Order Info: 0786-1 - CMP Order Info: [id number] - LIPID Order Info: [id number] - TSH Result Comment: The drugs N-Acetylcysteine and Metamizole may falsely depress this assay. Normal range: <150 mg/dL Borderline High: 150-199 mg/dL High: 200-499 mg/dL Very High: >500 mg/dL Performed By: #### L 501.9520, L500.4100, L500.4050 #### [facility] [address] [place], [address] Potassium (Unsp spec) [Mass/ Vol]Ordered By: Richard Bowen on 01-18-2025 Potassium [Moles/Vol] 4.1 mmol/L 3.3-5.1 [facility] Screening total cholesterol/ high density lipoprotein (HDL) cholesterol ratioOrdered By: Richard Bowen on 01-18-2025 Cholesterol.total/Chol esterol in HDL [Mass ratio] 4.80 {ratio} [facility] Serum creatinine measurement (mass/volume)Ordered By: Richard Bowen on 01-18-2025 Creatinine [Mass/Vol] 0.72 mg/dL 0.70-1.20 [facility] Serum globulin measurementOr dered By: Richard Bowen on 01-18-2025 Globulin (S) [Mass/Vol] 2.6 g/dL 2.2-4.2 [facility] Serum glucose measurement (m ass/volume)Ordered By: Richard Bowen on 01-18-2025 Glucose [Mass/Vol] 106 mg/dL High 70-99 [facility] Serum or plasma alanine smith otransferase (ALT) measurementOrdered By: Richard Bowen on 01-18-2025 ALT [Catalytic activity/Vol] 16 U/L <35 [facility] Serum or plasma albumin libertad urement (mass/volume)Ordered By: Richard Bowen on 01-18-2025 Albumin [Mass/Vol] 4.1 g/dL 3.5-5.0 [facility] Serum or plasma albumin/glob ulin mass ratioOrdered By: Richard Bowen on 01-18-2025 Albumin/Globulin [Mass ratio] 1.6 {ratio} 0.9-2.4 [facility] Serum or plasma alkaline neel sphatase measurementOrdered By: Richard Bowen on 01-18-2025 ALP [Catalytic activity/Vol] 74 U/L 35-104 [facility] Serum or plasma calcium libertad urement (mass/volume)Ordered By: Richard Bowen on 01-18-2025 Calcium [Mass/Vol] 9.1 mg/dL 7.6-11.0 [facility] Serum or plasma cholesterol in HDL measurement (mass/volume)Ordered By: Richard Bowen on 01-18-2025 Cholesterol in HDL [Mass/Vol] 37 mg/dL Low >40 [facility] Comment on above: National Cholesterol Education Program (NCEP) guidelines:<40 mg/dL: Low HDL-cholesterol (major risk factor for CHD)>= 60 mg/dL: High HDL-cholesterol (negative risk factor for CHD)HDL-cholesterol is affected by a number of factors, e.g. smoking, exercise, hormones, sex and age. Serum or plasma cholesterol measurement (mass/volume)Ordered By: Richard Bowen on 01-18-2025 Cholesterol [Mass/Vol] 177 mg/dL <201 [facility] Comment on above: Cholesterol level, D esirable <200 mg/dLBorderline high cholesterol 200-239 mg/dLHigh cholesterol >=240 mg/dLRecommendations of the NCEP Adult Treatment Panel for the following risk-cutoff thresholds for the [place] population. Serum or plasma urea nitroge n measurement (mass/volume)Ordered By: Richard Bowen on 01-18-2025 Urea nitrogen [Mass/Vol] 18 mg/dL 4-19 [facility] Sodium levelOrdered By: Franck Bowen on 01-18-2025 Sodium [Moles/Vol] 140 mmol/L 133-145 [facility] T4 Free Directon 01-18-2025 T4 FREE DIRECT 1.00 ng/dL Normal 0.76-1.46 [facility] Comment on above: Order Comment: Order Date: 01/21/24 Order Info: [id number] - CMP Order Info: [id number] - LIPID Order Info: [id number] - TSH Performed By: #### L [id number], L506.1001, L501.16950 #### [facility] [address] [place], [place], [address] T4 freeOrdered By: Reyes Bowen on 01-18-2025 Free T4 [Mass/Vol] 1.00 ng/dL 0.76-1.46 [facility] TSH DL <= 0.005 mIU/L QnOrde red By: Richard Bowen on 01-18-2025 Thyroid Stimulating Hormone (TSH) 1.550 uIU/mL 0.300-4.200 [facility] Thyroid Stim Hormone (TSH)on 01-18-2025 TSH 1.550 uIU/mL Normal 0.300-4.200 [facility] Comment on above: Order Comment: Order Date: 01/21/24 Order Info: [id number] - CMP Order Info: [id number] - LIPID Order Info: [id number] - TSH Performed By: #### L [id number], L500.4100, L500.4050 #### [facility] [address] [place], [place], [id number] Total proteinOrdered By: Petra Bowen on 01-18-2025 Protein [Mass/Vol] 6.7 g/dL 5.9-8.4 [facility] Triglycerides measurementOrd ered By: Richard Bowen on 01-18-2025 Triglyceride [Mass/Vol] 158 mg/dL <199 [facility] Comment on above: The drugs N-Acetylcy steine and Metamizole may falsely depress this assay. Normal range: <150 mg/dLBorderline High: 150-199 mg/dLHigh: 200-499 mg/dLVery High: >500 mg/dL Vitamin D, 25-hydroxyOrdered By: Richard Bowen on 01-18-2025 Vitamin D 25-Hydroxy 18.9 ng/mL Low 30-100 [facility] Comment on above: Vitamin D StatusDefi ciency: <20 ng/mL (50nmol/L)Insufficiency: 20-30 ng/mL (50-75 nmol/L)Sufficiency: 30-100 ng/mL (75-250 nmol/L)Toxicity: >100 ng/mL (>250 nmol/L) Basophil percentageOrdered B y: Dinesh Bowen on 07-14-2023 Chloride [Moles/Vol] 107 mmol/L 98-107 [facility] Cholesterol [Mass/Vol] 170 mg/dL <200 [facility] Comment on above: <200 mg/dL Desirable 200-240 mg/dL Borderline >240 mg/dL High Risk Glucose [Mass/Vol] 99 mg/dL 74-106 [facility] Potassium [Moles/Vol] 3.7 mmol/L 3.5-5.1 [facility] Sodium [Moles/Vol] 138 mmol/L 136-145 [facility] Triglyceride [Mass/Vol] 147 mg/dL <199 [facility] Comment on above: The drugs N-Acetylcy steine and Metamizole may falsely depress this assay.Serum Triglycerides Reference Interval Normal <150 mg/dL Borderline high 150 - 199 mg/dL High 200 - 499 mg/dL Very High > or = 500 mg/dL Laboratory - Chemistry and C hemistry - challengeOrdered By: Dinesh Bowen on 07-14-2023 CO2 [Moles/Vol] 24.0 mmol/L 21.0-32.0 [facility] Free T4 [Mass/Vol] 1.00 ng/dL 0.76-1.46 [facility] Urea nitrogen/Creatinine [Mass ratio] 26.5 mg/mg 10-20 [facility] No Panel InformationOrdered By: Dinesh Bowen on 07-14-2023 Vitamin D 25-Hydroxy 46.8 ng/mL [facility] Comment on above: Vitamin D 25(OH) Sta tus Range Deficiency <20 ng/mL (50nmol/L) Insufficiency 20 - 30 ng/mL (50 - 75 nmol/L) Sufficiency 30 - 100 ng/mL (75 - 250 nmol/L) Toxicity >100 ng/mL (>250 nmol/L) Estimated GFR (MDRD) Amer 120 mL/min >60 [facility] Comment on above: GFR Calc Estimated GFR (MDRD) Non-Af Amer 99 mL/min >60 [facility] Comment on above: Non- GFR Calc Thyroid Stimulating Hormone (TSH) 1.49 uIU/mL 0.358-3.74 [facility] Serum or plasma calcium libertad urement (mass/volume)Ordered By: Dinesh Bowen on 07-14-2023 Calcium [Mass/Vol] 8.4 mg/dL 8.5-10.1 [facility] Serum or plasma cholesterol in HDL measurement (mass/volume)Ordered By: Dinesh Bowen on 07-14-2023 Cholesterol in HDL [Mass/Vol] 33 mg/dL >40 [facility] Comment on above: The drugs N-Acetylcy steine and Metamizole may falsely depress this assay. Reference Range HDL <40 mg/dL Low HDL Cholesterol HDL >or= 60 mg/dL High HDL Cholesterol Serum or plasma cholesterol in VLDL measurement (mass/volume)Ordered By: Dinesh Bowen on 07-14-2023 Cholesterol in VLDL [Mass/Vol] 29 mg/dL 5-40 [facility] Serum or plasma creatinine m easurement (mass/volume)Ordered By: Dinesh Bowen on 07-14-2023 Creatinine [Mass/Vol] 0.68 mg/dL 0.55-1.02 [facility] Comment on above: The validity of the calculated GFR & GFRAA in patients over 70 years has not been determined. Clinical correlation is essential. Serum or plasma low density lipoprotein (LDL) cholesterol measurement (mass/volume)Ordered By: Dinesh Bowen on 07-14-2023 Cholesterol in LDL [Mass/Vol] 108 mg/dL 0-130 [facility] Serum or plasma urea nitroge n measurement (mass/volume)Ordered By: Dinesh Bowen on 07-14-2023 Urea nitrogen [Mass/Vol] 18 mg/dL 7-18 [facility] Thin prep Papanicolaou smear with manual screeningOrdered By: Dinesh Bowen on 07-14-2023 Thin prep Papanicolaou smear with manual screening 7 5-15 [facility] Cervical or vagninal specime n microscopic examination by cytology stain (reported ason 01-07-2022 Cytology report Cyto stain Doc (Cvx/Vag) Comment . [facility] Work Phone: Comment on above: The Pap smear is a s creening test designed to aid in thedetection of premalignant and malignant conditions of theuterine cervix. It is not a diagnostic procedure andshould not be used as the sole means of detecting cervicalcancer. Both false-positive and false-negative reports dooccur. Laboratory - Cytologyon 12-19 Plant Maintenance Engineer Cyto stain Nom (Cvx/Vag) [ID] Comment . [facility] Work Phone: Comment on above: Leona Wilcox, Cyto technologist (ASCP) Laboratory - Miscellaneous t estson 01-07-2022 Service comment (Unsp spec) [Interp] Comment . [facility] Work Phone: Comment on above: This liquid based Th inPrep(R) pap test was screened withthe use of an image guided system. Service comment (Unsp spec) [Interp] . . [facility] Work Phone: No Panel Informationon 01-07 Human Papillomavirus Screen Comment . [facility] Work Phone: Comment on above: The HPV DNA reflex c madiha were not met with this specimenresult therefore, no HPV testing was performed.Performed at: [address] [id number] Director: Maggie Luque MD, Phone: [phone] Pathology report final diagnosis Narrative Comment . [facility] Work Phone: Comment on above: NEGATIVE FOR INTRAEP ITHELIAL LESION OR MALIGNANCY. Basophil percentageon 2020 Chloride [Moles/Vol] 112 mmol/L 98-[address] [facility] Work Phone: Cholesterol [Mass/Vol] 168 mg/dL <200 mireya [facility] Work Phone: Comment on above: <200 mg/dL Desirable 200-240 mg/dL Borderline >240 mg/dL High Risk Glucose [Mass/Vol] 108 mg/dL 74-106 [facility] Work Phone: Comment on above: Fasting Glucose resu lt from 100 to 125 mg/dL suggests IMPAIRED HOMEOSTASIS per A.D.A. criteria.Please note revised GLUCOSE reference range effective 2017. Potassium [Moles/Vol] 3.8 mmol/L 3.5-5.1 [facility] Work Phone: Sodium [Moles/Vol] 143 mmol/L 136-145 [facility] Work Phone: Triglyceride [Mass/Vol] 135 mg/dL [facility] Work Phone: Comment on above: The drugs N-Acetylcy steine and Metamizole may falsely depress this assay.Serum Triglycerides Reference Interval Normal <150 mg/dL Borderline high 150 - 199 mg/dL High 200 - 499 mg/dL Very High > or = 500 mg/dL WBC (Bld) [#/Vol] 8.0 10*3/uL 4.4-11.0 [facility] Work Phone: Blood erythrocytes count (nu mber/volume)on 10-03-2021 RBC (Bld) [#/Vol] 4.44 10*6/uL 4.2-5.4 [facility] Work Phone: Blood hemoglobin measurement (mass/volume)on 10-03-2021 Hemoglobin (Bld) [Mass/Vol] 13.1 g/dL 12.0-15.0 [facility] Work Phone: Blood platelet mean volumeon 10-03-2021 Platelet mean volume (Bld) [Entitic vol] 12.3 fL 6.2-12.0 [facility] Work Phone: Determination of erythrocyte mean corpuscular volume (MCV)on 10-03-2021 MCV (RBC) [Entitic vol] 90.8 fL 81-99 [facility] Work Phone: Hematocrit Auto (Bld) [Volum e fraction]on 10-03-2021 Hematocrit (Bld) [Volume fraction] 40.3 % 37-47 [facility] Work Phone: Laboratory - Chemistry and C hemistry - challengeon 10-03-2021 CO2 [Moles/Vol] 26.0 mmol/L 21.0-32.0 [facility] Work Phone: Urea nitrogen/Creatinine [Mass ratio] 35.2 mg/mg 10-20 [facility] Work Phone: Laboratory - Hematology and Cell countson 10-03-2021 Erythrocyte distribution width (RBC) [Entitic vol] 42.1 fL 35.1-43.9 [facility] Work Phone: Erythrocyte distribution width (RBC) [Ratio] 12.6 % 11.6-14.6 [facility] Work Phone: MCH (RBC) [Entitic mass] 29.5 pg 27.0-32.0 [facility] Work Phone: MCHC Auto (RBC) [Mass/Vol]on 10-03-2021 MCHC (RBC) [Mass/Vol] 32.5 g/dL 32-36 [facility] Work Phone: No Panel Informationon 10-03 Estimated GFR (MDRD) Amer 115 mL/min >60 [facility] Work Phone: Comment on above: GFR Calc Estimated GFR (MDRD) Non-Af Amer 95 mL/min >60 [facility] Work Phone: Comment on above: Non- GFR Calc Thyroid Stimulating Hormone (TSH) 1.43 uIU/mL 0.358-3.74 [facility] Work Phone: Vitamin D 25-Hydroxy 21.7 ng/mL [facility] Work Phone: Comment on above: Vitamin D 25(OH) Sta tus Range Deficiency <20 ng/mL (50nmol/L) Insufficiency 20 - 30 ng/mL (50 - 75 nmol/L) Sufficiency 30 - 100 ng/mL (75 - 250 nmol/L) Toxicity >100 ng/mL (>250 nmol/L) Platelets bldon 10-03-2021 Platelets (Bld) [#/Vol] 185 10*3/uL 150-450 [facility] Work Phone: Serum or plasma calcium libertad urement (mass/volume)on 10-03-2021 Calcium [Mass/Vol] 9.1 mg/dL 8.5-10.1 [facility] Work Phone: Serum or plasma cholesterol in HDL measurement (mass/volume)on 10-03-2021 Cholesterol in HDL [Mass/Vol] 35 mg/dL [facility] Work Phone: Comment on above: The drugs N-Acetylcy steine and Metamizole may falsely depress this assay. Reference Range HDL <40 mg/dL Low HDL Cholesterol HDL >or= 60 mg/dL High HDL Cholesterol Serum or plasma cholesterol in VLDL measurement (mass/volume)on 10-03-2021 Cholesterol in VLDL [Mass/Vol] 27 mg/dL 5-40 [facility] Work Phone: Serum or plasma creatinine m easurement (mass/volume)on 10-03-2021 Creatinine [Mass/Vol] 0.71 mg/dL 0.55-1.02 [facility] Work Phone: Comment on above: The validity of the calculated GFR & GFRAA in patients over 70 years has not been determined. Clinical correlation is essential. Serum or plasma low density lipoprotein (LDL) cholesterol measurement (mass/volume)on 10-03-2021 Cholesterol in LDL [Mass/Vol] 106 mg/dL 0-130 [facility] Work Phone: Serum or plasma urea nitroge n measurement (mass/volume)on 10-03-2021 Urea nitrogen [Mass/Vol] 25 mg/dL 7-18 [facility] Work Phone: Thin prep Papanicolaou smear with manual screeningon 10-03-2021 Thin prep Papanicolaou smear with manual screening 5 5-15 [facility] Work Phone: SCREEN MAMMO & 3D HERIBERTO - CGon 03-29-2019 Bilirubin.direct mass conc CLINICAL INDICATION: Screening mammography EXAM DESCRIPTION: SCREEN MAMMO & 3D HERIBERTO - CG COMPARISON: Baseline TECHNIQUE: Two standard views of each breast were obtained. 3D tomosynthesis was performed. This exam was reviewed with the aid of CAD. FINDINGS: There are scattered areas of fibroglandular density (breast composition B). No areas of asymmetry, masses or suspicious calcifications are seen. IMPRESSION: No mammographic evidence of malignancy. Routine bilateral screening mammography in 1 year. Routine annual screening mammography is recommended by the [employer]. BIRADS 1 Negative A reminder letter will be scheduled. Read By: GLENDY KEATING DO Normal [facility] RUBEOLA IGM ANTIBODYon 02-22 RUBEOLA IGM ANTIBODY Negative Normal [facility] Comment on above: Result Comment: RESULTS ARE REPORTED POSITIVE, NEGATIVE OR EQUIVOCAL. Performed By: #### G TTGE #### [address] [address] RUBEOLA AB, IGGon 02-17-2019 RUBEOLA AB, IGG Positive Normal POS [facility] Comment on above: Result Comment: A po sitive result indicates either prior exposure to the virus or response to vaccination. The presence of Rubeola IgG suggests immunity against rubeola. Rubeola (measles) antibody testing: Individuals who are nonimmune will have negative results Individuals with a positive result may indicate a current infection or previous exposure/or immunity to measles. Performed By: #### G TTGE #### [address] [address] BASIC METABOLIC PANELon -3 Calcium mass conc 9.4 mg/dL Normal 8.4-10.2 [facility] Comment on above: Performed By: #### G TTDA #### [address] [address] Glucose mass conc 106 mg/dL High 70-100 [facility] Comment on above: Performed By: #### G TTDA #### [address] [address] Urea nitrogen mass conc 17 mg/dL Normal 7-22 [facility] Comment on above: Performed By: #### G TTDA #### [address] [address] Anion gap molar conc 6.7 mmol/L Normal 10-14 [facility] Comment on above: Performed By: #### G TTDA #### [address] [address] CO2 molar conc 30.0 mm/Hg Normal 22.0-30.0 [facility] Comment on above: Performed By: #### G TTDA #### [address] [address] Creatinine mass conc 0.60 mg/dL Low 0.70-1.20 [facility] Comment on above: Performed By: #### G TTDA #### [address] [address] GFR/1.73 sq M predicted among non-blacks MDRD vol rate/area (S/P/Bld) 117 mL/min/1.73 m2 Normal >60 [facility] Comment on above: Result Comment: Refe rence Range: 59 to 44 - Mild to moderate loss of kidney function 44 to 30 - Moderate to Severe loss of kidney function 29 to 15 - Severe loss of kidney function <15 - Kidney failure The estimated GFR is based on the MDRD formula for assessment of stable or slowly declining kidney function in adults. Estimated GFR values are not accurate in: -Obese (BMI>34) OR underweight (BMI<20) people -The very old OR very young -Races other than or -[place] -People with acute illnesses, amputations, or acute kidney failure. Estimated GFR should be interpreted in clinical context and an alternative method such as a timed urine collection for creatinine clearance used to verify questionable results. (Ref. National Kid[employer] Foundation 2015) Performed By: #### G TTDA #### [address] [address] Potassium molar conc 3.4 mmol/L Low 3.5-5.0 [facility] Comment on above: Performed By: #### G TTDA #### [address] [address] Chloride molar conc 104 mmol/L Normal 100-110 [facility] Comment on above: Performed By: #### G TTDA #### [address] [address] Sodium molar conc 141 mmol/L Normal 136-145 [facility] Comment on above: Performed By: #### G TTDA #### [address] [address] CBC WITH DIFFERENTIALon - Basophils #/vol (Bld) 0.02 10*3/uL Normal 0.00-0.20 [facility] Comment on above: Performed By: #### G TTDA #### [address] [address] Basophils #/vol (Bld) 0.3 % Normal 0.0-2.0 [facility] Comment on above: Performed By: #### G TTDA #### [address] [address] Eosinophils #/vol (Bld) 0.34 10*3/uL Normal 0.00-0.50 [facility] Comment on above: Performed By: #### G TTDA #### [address] [address] Eosinophils/100 WBC (Bld) 5.5 % High 0.0-4.0 [facility] Comment on above: Performed By: #### G TTDA #### [address] [address] Erythrocyte distribution width Ratio (RBC) 14.7 % High 11.5-14.5 [facility] Comment on above: Performed By: #### G TTDA #### [address] [address] Hematocrit Volume Fraction (Bld) 37.4 % Normal 35.0-47.0 [facility] Comment on above: Performed By: #### G TTDA #### [address] [address] Hemoglobin mass conc (Bld) 11.9 g/dL Low 12.0-16.0 [facility] Comment on above: Performed By: #### G TTDA #### [address] [address] Lymphocytes #/vol (Bld) 1.20 10*3/uL Normal 1.00-4.80 [facility] Comment on above: Performed By: #### G TTDA #### [address] [address] Lymphocytes/100 WBC (Bld) 19.4 % Low 24.0-44.0 [facility] Comment on above: Performed By: #### G TTDA #### [address] [address] MCH Entitic mass (RBC) 27.8 pg Normal 25.6-32.2 [facility] Comment on above: Performed By: #### G TTDA #### [address] [address] MCHC mass conc (RBC) 31.8 g/dL Low 32.0-36.0 [facility] Comment on above: Performed By: #### G TTDA #### [address] [address] MCV Entitic volume (RBC) 87.4 fL Normal 82.0-98.0 [facility] Comment on above: Performed By: #### G TTDA #### [address] [address] Monocytes #/vol (Bld) 0.37 10*3/uL Normal 0.20-1.20 [facility] Comment on above: Performed By: #### G TTDA #### [address] [address] Monocytes/100 WBC (Bld) 6.0 % Normal 5.0-12.0 [facility] Comment on above: Performed By: #### G TTDA #### [place] [id number] Neutrophils #/vol (Bld) 4.26 10*3/uL Normal 2.00-7.50 [facility] Comment on above: Performed By: #### G TTDA #### [address] [address] Neutrophils/100 WBC (Bld) 68.6 % High 36.0-66.0 [facility] Comment on above: Performed By: #### G TTDA #### [address] [address] NRBC COUNT 0.00 Normal 0.00-0.50 [facility] Comment on above: Performed By: #### G TTDA #### [address] [address] Nucleated RBC/100 WBC Ratio (Bld) 0.0 % Normal [facility] Comment on above: Performed By: #### G TTDA #### [address] [address] Platelet mean volume Entitic volume (Bld) 11.9 fL Normal 9.4-12.4 [facility] Comment on above: Performed By: #### G TTDA #### [address] [address] Platelets #/vol (Bld) 142 10*3/uL Low 150-400 [facility] Comment on above: Performed By: #### G TTDA #### [address] [address] RBC #/vol (Bld) 4.28 10*6/uL Normal 3.80-5.10 [facility] Comment on above: Performed By: #### G TTDA #### [address] [address] WBC #/vol (Bld) 6.20 10*3/uL Normal 4.80-10.80 [facility] Comment on above: Performed By: #### G TTDA #### [address] [address] RESPIRATORY CULTUREon 2018 RESPIRATORY CULTURE PATIENT: KIRILL GOMEZ EA LOCATION: [facility]#: [id number] : 1975 AGE: 43 SEX: F ORDER# [id number] ORDERED BY: CAMRYN GAITAN Source: THR Collected: 02/16/19 14:27 Site: throat Received : 02/16/19 18:16 RESPIRATORY CULTURE FINAL 02/18/19 09:03 02/18/19 NORMAL HERI NO PATHOGENS ISOLATED Normal [facility] Comment on above: Performed By: #### G TTGE #### [address] [address] CBCon 09-04-2018 Erythrocyte distribution width Ratio (RBC) 13.7 % Normal 11.5-14.5 [facility] Comment on above: Performed By: #### G TTDA #### [address] [address] Hematocrit Volume Fraction (Bld) 32.4 % Low 35.0-47.0 [facility] Comment on above: Performed By: #### G TTDA #### [address] [address] Hemoglobin mass conc (Bld) 10.3 g/dL Low 12.0-16.0 [facility] Comment on above: Performed By: #### G TTDA #### [address] [address] MCH Entitic mass (RBC) 26.3 pg Normal 25.6-32.2 [facility] Comment on above: Performed By: #### G TTDA #### [address] [address] MCHC mass conc (RBC) 31.8 % Low 32.0-36.0 [facility] Comment on above: Performed By: #### G TTDA #### [address] [address] MCV Entitic volume (RBC) 82.9 fL Normal 82.0-98.0 [facility] Comment on above: Performed By: #### G TTDA #### [address] [address] Platelet mean volume Entitic volume (Bld) 11.4 fL Normal 9.4-12.4 [facility] Comment on above: Performed By: #### G TTDA #### [address] [address] Platelets #/vol (Bld) 185 10*3/uL Normal 150-400 [facility] Comment on above: Performed By: #### G TTDA #### [address] [address] RBC #/vol (Bld) 3.91 10*6/uL Normal 3.80-5.10 [facility] Comment on above: Performed By: #### G TTDA #### [address] [address] WBC #/vol (Bld) 6.32 10*3/uL Normal 4.80-10.80 [facility] Comment on above: Performed By: #### G TTDA #### [address] [address] COMPREHENSIVE METABOLIC PANE Ayaan 09-04-2018 Calcium mass conc 8.9 mg/dL Normal 8.4-10.2 [facility] Comment on above: Performed By: #### G TTDA #### [address] [address] ALK PHOS 87 U/L Normal 38-126 [facility] Comment on above: Performed By: #### G TTDA #### [address] [address] ALT enzyme act/vol 29 U/L Normal 9-52 [facility] Comment on above: Performed By: #### G TTDA #### [address] [address] Anion gap molar conc 8.8 mmol/L Normal 10-14 [facility] Comment on above: Performed By: #### G TTDA #### [address] [address] AST enzyme act/vol 25 U/L Normal 14-56 [facility] Comment on above: Performed By: #### G TTDA #### [address] [address] Bilirubin Ql (U) 0.6 mg/dL Normal 0.2-1.2 [facility] Comment on above: Performed By: #### G TTDA #### [address] [address] CO2 molar conc 26.0 mm/Hg Normal 22.0-30.0 [facility] Comment on above: Performed By: #### G TTDA #### [address] [address] Creatinine mass conc 0.70 mg/dL Normal 0.70-1.20 [facility] Comment on above: Performed By: #### G TTDA #### [address] [address] GFR/1.73 sq M predicted among non-blacks MDRD vol rate/area (S/P/Bld) 98 mL/min/1.73 m2 Normal >60 [facility] Comment on above: Result Comment: Refe rence Range: 59 to 44 - Mild to moderate loss of kidney function 44 to 30 - Moderate to Severe loss of kidney function 29 to 15 - Severe loss of kidney function <15 - Kidney failure The estimated GFR is based on the MDRD formula for assessment of stable or slowly declining kidney function in adults. Estimated GFR values are not accurate in: -Obese (BMI>34) OR underweight (BMI<20) people -The very old OR very young -Races other than or -[place] -People with acute illnesses, amputations, or acute kidney failure. Estimated GFR should be interpreted in clinical context and an alternative method such as a timed urine collection for creatinine clearance used to verify questionable results. (Ref. National Kidney Foundation 2015) Performed By: #### G TTDA #### [address] [address] Glucose mass conc 95 mg/dL Normal 70-100 [facility] Comment on above: Performed By: #### G TTDA #### [address] [address] Protein mass conc 7.2 g/dL Normal 6.0-8.2 [facility] Comment on above: Performed By: #### G TTDA #### [address] [address] [address] Urea nitrogen mass conc 19 mg/dL Normal 7-22 [facility] Comment on above: Performed By: #### G TTDA #### [address] [address] Potassium molar conc 4.0 mmol/L Normal 3.5-5.0 [facility] [place] Comment on above: Performed By: #### G TTDA #### [address] [address] Sodium molar conc 142 mmol/L Normal 136-145 [facility] [place] Comment on above: Performed By: #### G TTDA #### [address] [address] Albumin mass conc 4.0 g/dL Normal 3.5-5.0 [facility] [place] Comment on above: Performed By: #### G TTDA #### [address] [address] Chloride molar conc 107 mmol/L Normal 100-110 [facility] Comment on above: Performed By: #### G TTDA #### [address] [address] FERRITINon 09-04-2018 Ferritin mass conc 33.30 ng/mL Normal 6.24-137.00 [facility] [place] Comment on above: Performed By: #### G TTDA #### [address] [address] LIPID PROFILEon 09-04-2018 Cholesterol in HDL mass conc 39 mg/dL Normal [facility] Comment on above: Result Comment: HDL CHOLESTEROL: Optimal: > 60 mg/dl Low: < 40 mg/dl Performed By: #### G TTDA #### [address] [address] Cholesterol in LDL mass conc 137 mg/dL Normal [facility] Comment on above: Result Comment: REFE RENCE RANGE FOR LDL (CALCULATED) <70 mg/dl for very high risk patients* <100 mg/dl optimal for anyone and recommended for high risk patients 100-130 mg/dl acceptable for low and moderate risk patients, with a therapeutic option to set a goal of <100 mg/dl 130-160 mg/dl, borderline high, treatment to be considered >160 mg/dl, high *Very high risk people/ patients have cardiovascular disease together with either multiple risk factors, or severely/poorly controlled multiple risk factors, or metabolic syndromes (e.g. obesity). Patients hospitalized with acute coronary syndrome, cerebral vascular accident are also very high risk. High-risk people/patients have coronary artery disease or disease of the blood vessels in the brain or extremities, or have diabetes, or multiple (>2) risk factors (smoking, hypertension) and therefore they have a 20% or more risk of having a heart attack within 10 years. Performed By: #### G TTDA #### [address] [address] LDL HDL RATIO 4 Normal < 3 [facility] Comment on above: Performed By: #### G TTDA #### [address] [address] Cholesterol in VLDL mass conc 20 mg/dL Normal [facility] Comment on above: Performed By: #### G TTDA #### [address] [address] Cholesterol mass conc 196 mg/dL Normal 0-200 [facility] Comment on above: Result Comment: Chol esterol risk factor: Desirable < 200 mg/dL Borderline 200 - 239 mg/dL High risk > 239 mg/dL Performed By: #### G TTDA #### [address] [address] Triglyceride mass conc 102 mg/dL Normal 35-160 [facility] Comment on above: Performed By: #### G TTDA #### [address] [address] TSH REFLEXon 09-04-2018 Thyrotropin Qn 1.05 ulu/mL Normal 0.34-5.60 [facility] Comment on above: Result Comment: TSH REFERENCE RANGE IS FOR AGE 10 AND OLDER. CHILDREN UNDER 1 YEAR OLD HAVE SIGNIFICANTLY HIGHER NORMAL RANGE, WHICH GRADUALLY DECREASES WITH AGE. PLEASE CONSULT THE PATHOLOGIST FOR SPECIFIC INFORMATION. Performed By: #### G TTDA #### [address] [address] CBC WITH DIFFERENTIALon 07-20 Basophils #/vol (Bld) 0.3 % Normal 0.0-2.0 [facility] Comment on above: Performed By: #### G TTDA #### [address] [address] Basophils #/vol (Bld) 0.03 10*3/uL Normal 0.00-0.20 [facility] Comment on above: Performed By: #### G TTDA #### [address] [address] Eosinophils #/vol (Bld) 0.09 10*3/uL Normal 0.00-0.50 [facility] Comment on above: Performed By: #### G TTDA #### [place] [address] Eosinophils/100 WBC (Bld) 0.8 % Normal 0.0-4.0 [facility] Comment on above: Performed By: #### G TTDA #### [address] [address] Erythrocyte distribution width Ratio (RBC) 13.7 % Normal 11.5-14.5 [facility] Comment on above: Performed By: #### G TTDA #### [address] [address] Hematocrit Volume Fraction (Bld) 25.1 % Low 35.0-47.0 [facility] Comment on above: Performed By: #### G TTDA #### [address] [address] Hemoglobin mass conc (Bld) 8.4 g/dL Low 12.0-16.0 [facility] Comment on above: Performed By: #### G TTDA #### [address] [address] Lymphocytes #/vol (Bld) 2.00 10*3/uL Normal 1.00-4.80 [facility] Comment on above: Performed By: #### G TTDA #### [address] [address] Lymphocytes/100 WBC (Bld) 16.9 % Low 24.0-44.0 [facility] Comment on above: Performed By: #### G TTDA #### [address] [address] MCH Entitic mass (RBC) 28.3 pg Normal 25.6-32.2 [facility] Comment on above: Performed By: #### G TTDA #### [address] [address] MCHC mass conc (RBC) 33.5 % Normal 32.0-36.0 [facility] [place] Comment on above: Performed By: #### G TTDA #### [address] [address] MCV Entitic volume (RBC) 84.5 fL Normal 82.0-98.0 [facility] Comment on above: Performed By: #### G TTDA #### [address] [address] Monocytes #/vol (Bld) 1.19 10*3/uL Normal 0.20-1.20 [facility] [place] Comment on above: Performed By: #### G TTDA #### [address] [address] Monocytes/100 WBC (Bld) 10.1 % Normal 5.0-12.0 [facility] Comment on above: Performed By: #### G TTDA #### [address] [address] Neutrophils #/vol (Bld) 8.47 10*3/uL High 2.00-7.50 [facility] Comment on above: Performed By: #### G TTDA #### [address] [address] Neutrophils/100 WBC (Bld) 71.4 % High 36.0-66.0 [facility] Comment on above: Performed By: #### G TTDA #### [address] [address] NRBC COUNT 0.00 Normal 0.00-0.50 [facility] Comment on above: Performed By: #### G TTDA #### [address] [address] Nucleated RBC/100 WBC Ratio (Bld) 0.0 % Normal [facility] Comment on above: Performed By: #### G TTDA #### [address] [address] Platelet mean volume Entitic volume (Bld) 11.1 fL Normal 9.4-12.4 [facility] Comment on above: Performed By: #### G TTDA #### [address] [address] Platelets #/vol (Bld) 135 10*3/uL Low 150-400 [facility] Comment on above: Performed By: #### G TTDA #### [address] [address] RBC #/vol (Bld) 2.97 10*6/uL Low 3.80-5.10 [facility] [place] Comment on above: Performed By: #### G TTDA #### [address] [address] WBC #/vol (Bld) 11.84 10*3/uL High 4.80-10.80 [facility] Comment on above: Performed By: #### G TTDA #### [address] [address] RPRon 07-29-2018 Reagin Ab RPR Ql (S) NON-REACTIVE Normal Non-Reactive [facility] Comment on above: Performed By: #### G TTDA #### [address] [address] Jimbo 07-28-2018 ALT enzyme act/vol 20 U/L Normal 9-52 [facility] Comment on above: Performed By: #### A LT #### [address] [address] Nitin 07-28-2018 AST enzyme act/vol 13 U/L Low 14-56 [facility] Comment on above: Performed By: #### A ST #### [address] [address] BLOOD UREA NITROGENon 2017 Urea nitrogen mass conc 12 mg/dL Normal 7-22 [facility] Comment on above: Performed By: #### B UN #### [address] [address] CBC WITH DIFFERENTIALon Basophils #/vol (Bld) 0.3 % Normal 0.0-2.0 [facility] Comment on above: Performed By: #### C BCD #### [address] [address] Basophils #/vol (Bld) 0.03 10*3/uL Normal 0.00-0.20 [facility] [place] Comment on above: Performed By: #### C BCD #### [address] [address] Eosinophils #/vol (Bld) 0.11 10*3/uL Normal 0.00-0.50 [facility] Comment on above: Performed By: #### C BCD #### [address] [address] Eosinophils/100 WBC (Bld) 1.0 % Normal 0.0-4.0 [facility] Comment on above: Performed By: #### C BCD #### [address] [address] Erythrocyte distribution width Ratio (RBC) 13.9 % Normal 11.5-14.5 [facility] Comment on above: Performed By: #### C BCD #### [address] [address] Hematocrit Volume Fraction (Bld) 30.5 % Low 35.0-47.0 [facility] Comment on above: Performed By: #### C BCD #### [address] [address] Hemoglobin mass conc (Bld) 10.3 g/dL Low 12.0-16.0 [facility] Comment on above: Performed By: #### C BCD #### [address] [address] Lymphocytes #/vol (Bld) 1.99 10*3/uL Normal 1.00-4.80 [facility] Comment on above: Performed By: #### C BCD #### [address] [address] Lymphocytes/100 WBC (Bld) 18.7 % Low 24.0-44.0 [facility] Comment on above: Performed By: #### C BCD #### [address] [address] MCH Entitic mass (RBC) 28.5 pg Normal 25.6-32.2 [facility] Comment on above: Performed By: #### C BCD #### [address] [address] MCHC mass conc (RBC) 33.8 % Normal 32.0-36.0 [facility] [place] Comment on above: Performed By: #### C BCD #### [address] [address] MCV Entitic volume (RBC) 84.5 fL Normal 82.0-98.0 [facility] Comment on above: Performed By: #### C BCD #### [address] [address] Monocytes #/vol (Bld) 0.82 10*3/uL Normal 0.20-1.20 [facility] Comment on above: Performed By: #### C BCD #### [address] [address] Monocytes/100 WBC (Bld) 7.7 % Normal 5.0-12.0 [facility] Comment on above: Performed By: #### C BCD #### [address] [address] Neutrophils #/vol (Bld) 7.63 10*3/uL High 2.00-7.50 [facility] Comment on above: Performed By: #### C BCD #### [address] [address] Neutrophils/100 WBC (Bld) 71.7 % High 36.0-66.0 [facility] Comment on above: Performed By: #### C BCD #### [address] [address] NRBC COUNT 0.00 Normal 0.00-0.50 [facility] Comment on above: Performed By: #### C BCD #### [address] [address] Nucleated RBC/100 WBC Ratio (Bld) 0.0 % Normal [facility] Comment on above: Performed By: #### C BCD #### [address] [address] Platelet mean volume Entitic volume (Bld) 10.7 fL Normal 9.4-12.4 [facility] Comment on above: Performed By: #### C BCD #### [address] [address] Platelets #/vol (Bld) 158 10*3/uL Normal 150-400 [facility] Comment on above: Performed By: #### C BCD #### [address] [address] RBC #/vol (Bld) 3.61 10*6/uL Low 3.80-5.10 [facility] [place] Comment on above: Performed By: #### C BCD #### [address] [address] WBC #/vol (Bld) 10.64 10*3/uL Normal 4.80-10.80 [facility] Comment on above: Performed By: #### C BCD #### [address] [address] CREATININEon 07-28-2018 Creatinine mass conc 0.50 mg/dL Low 0.70-1.20 [facility] [place] Comment on above: Performed By: #### C REAT #### [address] [address] GFR ESTIMATEDon 07-28-2018 GFR/1.73 sq M predicted among non-blacks MDRD vol rate/area (S/P/Bld) 145 mL/min/1.73 m2 Normal >60 [facility] Comment on above: Result Comment: Refe chapis Range: 59 to 44 - Mild to moderate loss of kidney function 44 to 30 - Moderate to Severe loss of kidney function 29 to 15 - Severe loss of kidney function <15 - Kidney failure The estimated GFR is based on the MDRD formula for assessment of stable or slowly declining kidney function in adults. Estimated GFR values are not accurate in: -Obese (BMI>34) OR underweight (BMI<20) people -The very old OR very young -Races other than or -[place] -People with acute illnesses, amputations, or acute kidney failure. Estimated GFR should be interpreted in clinical context and an alternative method such as a timed urine collection for creatinine clearance used to verify questionable results. (Ref. National [employer] Foundation 2015) Performed By: #### G ANALISA #### [address] [address] LDHon 07-28-2018 LDH 364 U/L Normal 300-600 [facility] Comment on above: Performed By: #### L DH #### [address] [address] URIC ACIDon 07-28-2018 Urate mass conc 4.1 mg/dL Normal 2.5-6.2 [facility] Comment on above: Performed By: #### G TTDA #### [address] [address] GTT 3 HR GESTATIONALon 05-30 GLU GTT - 3 HR 150 mg/dL High 70-140 [facility] Comment on above: Result Comment: DIAGNOSTIC VALUES FOR GESTATIONAL DIABETES AT LEAST 2 VALUES MUST EXCEED: Fastin mg/dl 1 Hour : 180 mg/dl 2 Hour : 155 mg/dl 3 Hour : 140 mg/dl Note: changes in values for Gestational Diabetes 07-07-01 per ADA 2001 guidelines. Performed By: #### G TTGE #### [address] [address] GLU GTT - 2 HR 168 mg/dL High 75-155 [facility] Comment on above: Result Comment: ADA DIABETIC GUIDELNES: - ADA RECOMMENDS 3, 4, 5 AND 6 HOUR TOLERANCES NOT BE USED. NEW CRITERIA: -- Fasting Glucose < 100 is within normal limits -- DIABETIC RISK --------> 1) if the fasting glucose is 100 - 125, then indicates impaired fasting glucose 2) if 2 hour glucose is 140 - 199 then indicates impaired glucose tolerance -- DIABETES CONFIRMED IF: 8 Hour fasting glucose is greater than 126 mg/dl on more than one occasion --- OR --- 2 Hour oral GTT value is greater than or equal to 200 mg/dl NOTE: The 2 Hour oral Glucose tolerance consists of a fasting and 2 Hour glucose ONLY Performed By: #### G TTGE #### [address] [address] GLU GTT - 1 HR 185 mg/dL High 75-180 [facility] Comment on above: Performed By: #### G TTGE #### [address] [address] GLU GTT-FAST 81 mg/dL Normal 70-100 [facility] Comment on above: Performed By: #### G TTGE #### [address] [address] CBC WITH DIFFERENTIALon 08-0 Basophils #/vol (Bld) 0.04 10*3/uL Normal 0.00-0.20 [facility] Comment on above: Performed By: #### C BCD #### [address] [address] Basophils #/vol (Bld) 0.3 % Normal 0.0-2.0 [facility] Comment on above: Performed By: #### C BCD #### [address] [address] Eosinophils #/vol (Bld) 0.16 10*3/uL Normal 0.00-0.50 [facility] Comment on above: Performed By: #### C BCD #### [address] [address] Eosinophils/100 WBC (Bld) 1.4 % Normal 0.0-4.0 [facility] Comment on above: Performed By: #### C BCD #### [address] [address] Erythrocyte distribution width Ratio (RBC) 12.9 % Normal 11.5-14.5 [facility] Comment on above: Performed By: #### C BCD #### [address] [address] Hematocrit Volume Fraction (Bld) 29.4 % Low 35.0-47.0 [facility] Comment on above: Performed By: #### C BCD #### [address] [address] Hemoglobin mass conc (Bld) 9.8 g/dL Low 12.0-16.0 [facility] Comment on above: Performed By: #### C BCD #### [address] [address] Lymphocytes #/vol (Bld) 2.28 10*3/uL Normal 1.00-4.80 [facility] Comment on above: Performed By: #### C BCD #### [address] [address] Lymphocytes/100 WBC (Bld) 19.7 % Low 24.0-44.0 [facility] Comment on above: Performed By: #### C BCD #### [address] [address] MCH Entitic mass (RBC) 29.2 pg Normal 25.6-32.2 [facility] Comment on above: Performed By: #### C BCD #### [address] [address] MCHC mass conc (RBC) 33.3 % Normal 32.0-36.0 [facility] Comment on above: Performed By: #### C BCD #### [address] [address] MCV Entitic volume (RBC) 87.5 fL Normal 82.0-98.0 [facility] Comment on above: Performed By: #### C BCD #### [address] [address] Monocytes #/vol (Bld) 0.79 10*3/uL Normal 0.20-1.20 [facility] [place] Comment on above: Performed By: #### C BCD #### [address] [address] Monocytes/100 WBC (Bld) 6.8 % Normal 5.0-12.0 [facility] Comment on above: Performed By: #### C BCD #### [address] [address] Neutrophils #/vol (Bld) 8.21 10*3/uL High 2.00-7.50 [facility] Comment on above: Performed By: #### C BCD #### [address] [address] Neutrophils/100 WBC (Bld) 70.8 % High 36.0-66.0 [facility] Comment on above: Performed By: #### C BCD #### [address] [address] NRBC COUNT 0.00 Normal 0.00-0.50 [facility] Comment on above: Performed By: #### C BCD #### [address] [address] Nucleated RBC/100 WBC Ratio (Bld) 0.0 % Normal [facility] Comment on above: Performed By: #### C BCD #### [address] [address] Platelet mean volume Entitic volume (Bld) 11.2 fL Normal 9.4-12.4 [facility] Comment on above: Performed By: #### C BCD #### [address] [address] Platelets #/vol (Bld) 171 10*3/uL Normal 150-400 [facility] Comment on above: Performed By: #### C BCD #### [address] [address] RBC #/vol (Bld) 3.36 10*6/uL Low 3.80-5.10 [facility] [place] Comment on above: Performed By: #### C BCD #### [address] [address] WBC #/vol (Bld) 11.60 10*3/uL High 4.80-10.80 [facility] Comment on above: Performed By: #### C BCD #### [address] [address] GTT 1HR NONE FAST W/ GLUCOLA on 05-26-2018 1 HR GLU NO FBS 174 High 0-140 [facility] Comment on above: Performed By: #### G TTDA #### [address] [address] Vital Signs Date Time Vital Sign Value Performing Clinician Faci lity 08-05-2023 08:44-0400 Body height 157.[address] Dinesh oBwen Work Phone: [facility] 08-05-2023 08:44-0400 Body mass index (BMI) [Ratio] 29.2 kg/m2 Dr. Dinesh Bowen Work Phone: [facility] 08-05-2023 08:44-0400 Body temperature 97.9 [degF] Dr. Dinesh Bowen Work Phone: [facility] 08-05-2023 08:44-0400 Body weight 72.[address] Dinesh Bowen Work Phone: [facility] 08-05-2023 08:44-0400 Diastolic blood pressure 92 mm[Hg] Dr. Dinesh Bowen Work Phone: [facility] 08-05-2023 08:44-0400 Heart rate 63 /min Dr. Dinesh Bowen Work Phone: [facility] 08-05-2023 08:44-0400 Respiratory rate 17 /min Dr. Dinesh Bowen Work Phone: [facility] 08-05-2023 08:44-0400 SaO2% (BldA) [Mass fraction] 99 % Dr. Dinesh Bowen Work Phone: [facility] 08-05-2023 08:44-0400 Systolic blood pressure 142 mm[Hg] Dr. Dinesh Bowen Work Phone: [facility] 07-05-2023 10:06-0400 Body height 157.[address] Dinesh Bowen Work Phone: [facility] 07-05-2023 10:06-0400 Body mass index (BMI) [Ratio] 28.5 kg/m2 Dr. Dinesh Bowen Work Phone: [facility] 07-05-2023 10:06-0400 Body temperature 98.4 [degF] Dr. Dinesh Bowen Work Phone: [facility] 07-05-2023 10:06-0400 Body weight 70.[address] Dinesh Bowen Work Phone: [facility] 07-05-2023 10:06-0400 Diastolic blood pressure 68 mm[Hg] Dr. Dinesh Bowen Work Phone: [facility] 07-05-2023 10:06-0400 Heart rate 104 /min Dr. Dinesh Bowen Work Phone: [facility] 07-05-2023 10:06-0400 Systolic blood pressure 137 mm[Hg] Dr. Dinesh Bowen Work Phone: [facility] 04-29-2022 18:35-0400 Body temperature 98.9 [degF] [facility] Work Phone: 04-29-2022 18:35-0400 Diastolic blood pressure 78 mm[Hg] [facility] Work Phone: 04-29-2022 18:35-0400 Heart rate 88 /min [facility] Work Phone: 04-29-2022 18:35-0400 Respiratory rate 14 /min [facility] Work Phone: 04-29-2022 18:35-0400 SaO2% (BldA) [Mass fraction] 100 % [facility] Work Phone: 04-29-2022 18:35-0400 Systolic blood pressure 128 mm[Hg] [facility] Work Phone: 04-29-2022 16:43-0400 Body height 157.48 cm [facility] Work Phone: 04-29-2022 16:43-0400 Body mass index (BMI) [Ratio] 30.8 kg/m2 [facility] Work Phone: 04-29-2022 16:43-0400 Body weight 76.4 kg [facility] Work Phone: Encounters Encounter Date Encounter Type Care Provider Facility Start: 08-15-2025 End: [facility] Start: 08-09-2025 End: 08-09-2025 ambulatory Richard Bowen Facility:[facility] Start: 08-02-2025 End: 08-02-20[facility] Start: 01-18-2025 End: 01-18-[address] Richard Bowen MD Work Phone: [facility] Work Phone: Start: 01-18-2025 End: 01-18-[address] Richard Bowen MD -Laboratory, [place] Work Phone: Start: 01-18-2025 End: 01-18-2025 ambulatory Richard Bowen Facility:[facility] Start: 08-06-2023 End: 08-06-[address] Dinesh Bowen Work Phone: [facility] Work Phone: Start: 08-06-2023 End: 08-06-[address] [facility] Start: 08-05-2023 End: 08-05-[address] Dinesh Bowen Work Phone: [facility] Work Phone: Start: 07-14-2023 End: 07-14-[address] Dinesh Bowen Work Phone: [facility] Work Phone: Start: 07-14-2023 End: 07-14-[address] Dinesh Bowen Work Phone: [facility] Start: 07-10-2023 End: 07-10-[address] Dinesh Bowen Work Phone: [facility] Work Phone: Start: 07-05-2023 End: 07-05-[address] Dinesh Bowen Work Phone: [facility] Work Phone: Start: 04-29-2022 End: 04-29-2022 Emergency department patient visit [facility]-Emergency Department Start: 01-24-2022 End: 01-24-2022 Patient encounter procedure [facility]Outpatient Breast [facility] Start: 01-07-2022 End: 01-07-2022 Patient encounter procedure [facility] Start: 10-03-2021 [facility] Date Procedure Procedure Detail Performing Clinician Start: 07-10-2023 US scan of thyroid Dr. Dinesh Bowen Work Phone: Start: 01-24-2022 Screening mammography Plan of Treatment Date Care Activity Detail Author Patient Education ED BPV [employer] [facility] Work Phone: Patient referral [facility] Work Phone: Payers Date Payer Category Payer Self-pay [id number] 2024 Unknown [id number] Unknown [id number] Unknown [facility] [employer] [id number] Unknown [id number] [id number] Unknown [id number] [id number] Unknown [id number] [id number] Unknown [id number] [id number] Social History Date Type Detail Facility Tobacco smoking stat [facility] Unknown if ever smoked [facility] Work Phone: Start: 1975 Sex Assigned At Female [facility] Start: 04-29-2022 End: 08-05-2023 Tobacco smoking status [facility] Unknown if ever smoked [facility] Start: 08-05-2023 Tobacco smoking stat [facility] Smokes tobacco daily (finding) [facility] Start: 01-20-2025 Sex Female (finding) [facility] Mental Status Date Assessment Result Facility 04-29-2022 Cognitive function Level Of Cons ciousness Awake;Alert;Appropriate;Follow s Commands [facility] Work Phone: Clinical Note 01-07-2022 Note Date & Type Note Facility 01-07-2022 Note [facility] Work Phone: Pap Smear Specimen Adequacy January 07, 2022 11:10am Comment Satisfactory for evaluation. Endocervical and/or squamous metaplasticcells (endocervical component) are present. Comment on above: Satisfactory for sasha luation. Endocervical and/or squamous metaplasticcells (endocervical component) are present. Clinical Note 01-07-2022 Note Date & Type Note Facility 01-07-2022 Note [facility] Work Phone: Pap Smear Specimen Adequacy January 07, 2022 11:10am Comment Satisfactory for evaluation. Endocervical and/or squamous metaplasticcells (endocervical component) are present. Comment on above: Satisfactory for sasha luation. Endocervical and/or squamous metaplasticcells (endocervical component) are present. Clinical Note 01-07-2022 Note Date & Type Note Facility 01-07-2022 Note [facility] Work Phone: Pap Smear Specimen Adequacy January 07, 2022 11:10am Comment . Satisfactory for evaluation. Endocervical and/or squamous metaplasticcells (endocervical component) are present. Comment on above: Satisfactory for sasha luation. Endocervical and/or squamous metaplasticcells (endocervical component) are present. Evaluation note Note Date & Type Note Facility Evaluation note No assessment information availa ble [facility] Work Phone: Evaluation note Note Date & Type Note Facility Evaluation note Diagnosis Onset Date Strep pharyngitis acute [facility] Work Phone: Evaluation note Note Date & Type Note Facility Evaluation note Diagnosis Onset Date Strep pharyngitis acute Thyroid nodule acute [facility] Work Phone: Reason for referral (narrative) Note Date & Type Note Facility Reason for referral (narrative) No reason for referral information available [facility] Work Phone: Summary Purpose Family History No Family History Records Found Relationship Condition Age at Onset Recorded Date/T madeline father Diabetes mellitus Unknown mother Diabetes mellitus Unknown Hypertension Unknown Advance Directives No Advanced Directives Records Found Advance Directive Response Recorded Date/ Time Living Will No April 29, 2022 4:46pm Power of Helicopter Utility [employer]cre[employer] No April 29 4:46pm Advance Directive Response Recorded Date/ Time Living Will No April 29, 2022 4:46pm Do you have a Healthcare Power of Helicopter Utility Aircrewman? No April 29, 2022 4:46pm Chief Complaint and Reason for Visit Chief Complaint SCREENING FOR MALIGN ANT NEOPLASM OF BREAST Chief Complaint SCREENING FOR MALIGN ANT NEOPLASM OF BREAST dizzy Chief Complaint SORE THROAT NODULE Reason for Visit Strep pharyngitis Chief Complaint SORE THROAT NODULE THYROID NODULE R THYRPOID NODULE Reason for Visit Strep pharyngitis Thyroid nodule Chief Complaint Admit Date EORDJanuary 18, 2025 8:07 am Additional Source Comments INFORMATION SOURCE (unrecogn ized section and content) DATE CREATED AUTHOR 03/31/2019 [facility] DATE CREATED AUTHOR AUTHOR'S ORGANIZ ATION 08/27/2025 [facility] Goals (unrecognized section and content) Goals may be documented in a n alternate sectionGoals may be documented in an alternate sectionGoals may be documented in an alternate sectionGoals may be documented in an alternate sectionGoals may be documented in an alternate sectionGoals may be documented in an alternate section Care Teams (unrecognized sec tion and content) Team Status: Active Member Role Status Dates Dr. Dinesh Bowen MD Primary Care Provider Activ e Team Status: Inactive Member Role Status Dates Dr. Dinesh Bowen MD Primary Care Provider, Refe rring Provider Active Garima Hughes PA, PA Attending Provider Active Team Status: Inactive Member Role Status Dates Dr. Dinesh Bowen MD Primary Care Provider, Atte nding Provider Active Team Status: Inactive Member Role Status Dates Dr. Dinesh Bowen MD Primary Care Provider, Attending Provider, Referring Provider Active Team Status: Inactive Member Role Status Dates Dr. Dinesh Bowen MD Primary Care Provider, Refe rring Provider Active Dr. Kendall Wilson MD Attending Provider Active Team Status: Inactive Member Role Status Dates Dr. Dinesh Bowen MD Primary Care Provider Activ e Dr. Kendall Wilson MD Attending Provider, [facility] Active Team Status: Active Member Role Status Dates Dr. Richard Bowen MD Primary Care Provider Acti ve Team Status: Inactive Member Role Status Dates Dr. Richard Bowen MD Primary Care Provider Acti ve Start: January 18, 2025 End: January 18, 2025 Dr. Richard Bowen MD Attending Provider Active Start: January 18, 2025 End: January 18, 2025 Dr. Richard Bowen MD Referring Provider Active Start: January 18, 2025 End: January 18, 2025 FOR RECORDS PERTAINING TO PATIENTS WHO ARE OR HAVE BEEN ENROLLED IN A CHEMICAL DEPENDENCY/SUBSTANCEABUSE PROGRAM, SOME INFORMATION MAY BE OMITTED. This clinical summary was aggregated from multiple sources. Caution should be exercised in using it in the provision of clinical care. This summary normalizes information from multiple sources, and as a consequence, information in this document may materially change the coding, format and clinical context of patient data. In addition, data may be omitted in some cases. CLINICAL DECISIONS SHOULD BE BASED ON THE PRIMARY CLINICAL RECORDS. [facility]. provides no warranty or guarantee of the accuracy or completeness of information in this document.
--- NOTE | 2025-09-14 19:58 | ED.VIS.GI ---
HPI HPI - GI History of Present Illness Chief Complaint: Nausea/Vomiting Informant: patient Abdominal Pain/Flank Pain Onset: Days (Started on Friday.) Context: Gradual Onset Timing: Continuous Quality: Cramping and - (Epigastric) Location: Epigastric Current Severity: Mild Maximum Severity: Mild Worsened by: Nothing Relieved by: Nothing Nausea/Vomiting/Emesis GI Symptom: Positive for Nausea and Vomiting Onset: Days Severity: Mild Diarrhea/Melena/Hematochezia GI Symptom: Negative for Diarrhea, Melena or Hematochezia Associated Symptoms Associated Symptoms: Negative for Dysuria, Frequency, Hematuria or Urgency Narrative Narrative: 50-year-old female past medical history of hypertension. Prior C-sections x 2 and hernia repair. States her son has had GI symptoms for nearly a week. Friday she started having nausea vomiting. Some epigastric abdominal discomfort. No diarrhea. No melena. No hematemesis. Denies any back pain. 2 other family members at home do not have symptoms. Prior similar symptoms: Yes Recent Illness/Hospitalization: No PFSH PFSH Medical History Thyroid nodule Anxiety HTN (hypertension) Home Medications ?Medication ?Instructions ?Recorded ?Last Taken ?Type atenolol 25 mg tablet 25 mg PO Q24H 07/05/23 09/13/25 History citalopram 20 mg tablet 20 mg PO DAILY 07/05/23 09/13/25 History irbesartan 300 mg tablet 300 mg PO DAILY 08/05/23 09/13/25 History ondansetron 4 mg disintegrating 4 mg PO Q6H PRN nausea and 09/14/25 Unknown Rx tablet vomiting #10 tabs Allergy/AdvReac Type Severity Reaction Status Date / Time lisinopril AdvReac Mild Other Verified 09/14/25 19:16 Family History Father Diabetes Mother Diabetes Hypertension Social History Smoking Status: Current every day smoker tobacco type: cigarettes alcohol intake: current alcohol intake frequency: holidays/special occasions only substance use type: does not use ROS ROS ED ROS Narrative Epigastric Damir pain. Nausea vomiting. Constitutional Constitutional ED: Denies chills or fever(s) ENT ENT ED: Denies ear pain Cardiovascular Cardiovascular: Denies chest pain Respiratory/Chest Respiratory/Chest: Denies cough Gastrointestinal Gastrointestinal: Reports abdominal pain, nausea and vomiting; Denies constipation, diarrhea or melena Genitourinary Genitourinary ED: Denies dysuria or hematuria Musculoskeletal Musculoskeletal: Denies arthralgias Integumentary Denies abscess Neurologic Neurologic: Denies headache(s) Psychiatric Psychiatric: Denies anxiety Endocrine Endocrinology: Denies polydipsia, polyphagia or polyuria Hematologic/Lymphatic Hematologic/Lymphatic: Denies easy bleeding, easy bruising or lymphadenopathy Allergic/Immunologic Allergic/Immunologic ED: Denies mouth swelling, tongue swelling or urticaria EXAM Physical Exam Narrative Exam Narrative: Well-appearing 50-year-old female. Vital signs stable afebrile. Does not appear septic toxic. No acute distress. H EENT exam pupils round react light. Moist mucous membranes. Posterior pharynx unremarkable. Neck nontender no lymphadenopathy. No meningismus. Back nontender. Lungs clear to auscultation bilaterally. Heart regular rhythm rate about 80 no murmur. Chest wall ribs nontender. Abdomen soft nondistended normal bowel sounds without peritoneal signs. Mild epigastric tenderness. No rebound guarding rigidity. No Jimenez sign. No McBurney's point tenderness. No hernia or mass. No obstruction. Moving all 4 extremities. Nontender no edema. Normal strength. Normal range of motion. Neurologically she is awake alert. Answering questions following commands. Const Vital Signs: 09/14/25 19:15 Temperature 98.1 F Temperature Source Oral Pulse Rate 80 Respiratory Rate 16 Blood Pressure 150/96 H Blood Pressure Mean 114 Pulse Ox 99 Oxygen Delivery Method Room Air MDM MDM MDM Narrative Medical decision making narrative: 50-year-old female suspect viral syndrome. Son has similar symptoms. She is having epigastric abdominal pain. We will evaluate her for pancreatitis gallbladder disease excetra. I do not think she needs imaging. Should be started on IV fluids, IV Zofran and screening labs. Repeat exam at 9:03 PM patient doing well. Abdomen benign. Went over test results. Her abdominal pain is secondary to viral syndrome. She will be discharged to home Zofran for nausea. Fluids and rest. Follow-up if not improving return if worse. History & Record Review Discussion w/independent historian: Patient Additional record(s) reviewed:: Prior inpatient record, Prior outpatient record, Prior ED visit and Prior labs Lab Data Attestation: I reviewed the patient's lab results. Lab results narrative: CBC is unremarkable. White count at 9. H&H 14 and 44. Platelets 184. Electrolytes show gap 14. BUN and creatinine of 13 and 1. Glucose 118. Liver enzymes are unremarkable. Lipase is 22. Labs: Laboratory Results - last 24 hr 09/14/25 20:10 WBC 9.6 RBC 5.01 Hgb 14.7 Hct 44.9 MCV 89.6 MCH 29.3 MCHC 32.7 RDW Std Deviation 40.9 RDW Coeff of Satnam 12.5 Plt Count 184 MPV 11.7 Immature Gran % (Auto) 0.200 Neut % (Auto) 68.5 Lymph % (Auto) 23.3 [place] % (Auto) 5.9 Eos % (Auto) 1.5 Baso % (Auto) 0.6 Absolute Neuts (auto) 6.6 Absolute Lymphs (auto) 2.24 Nucleated RBC % 0 Sodium 140 Potassium 3.9 Chloride 102 Carbon Dioxide 24.3 Anion Gap 14 BUN 13 Creatinine 1.03 Estim Creat Clear Calc 62.40 Est GFR (MDRD) Non-Af 67 BUN/Creatinine Ratio 12.7 Glucose 118 H Calcium 9.5 Total Bilirubin 0.48 AST 18 ALT 13 Alkaline Phosphatase 80 Total Protein 7.7 Albumin 4.6 Globulin 3.1 Albumin/Globulin Ratio 1.5 Lipase 22 Discharge Plan Triage Chief Complaint: Nausea/Vomiting ED Provider: Hunter Ang Dx/Rx/DC Orders Clinical Impression: Abdominal pain, Viral syndrome Instructions: Abdominal Pain, ED Viral Syndrome (Adult) Prescriptions: New ondansetron 4 mg tablet,disintegrating 4 mg PO Q6H PRN (Reason: nausea and vomiting) Qty: 10 0RF No Action atenolol 25 mg tablet 25 mg PO Q24H citalopram 20 mg tablet 20 mg PO DAILY irbesartan 300 mg tablet 300 mg PO DAILY Primary Care Provider: Richard Bowen Referrals: Richadr Bowen MD [Primary Care Provider, Family Practice] - 3-5 Days if not improving Activity Restrictions/Additional Instructions: Plenty of fluids and rest. Follow-up with your doctor if not improving. Return emergency department if feeling worse. Zofran as needed for nausea. Clinically I suspect is secondary to viral syndrome. Your lab work was all normal. This should progressively improve. Print Language: Kiswahili Disposition Disposition: Home, Self Care
[2025-09-14] MEDS: 0.9% Normal Saline (1000mL) 1,000 ML 999 ML IV (20:04)
[2025-09-14 20:26] LABS: Hematocrit 44.9 % (37-47); Hemoglobin 14.7 g/dL (12.0-15.0); Immature Granulocytes Count 0.020 X10^3/uL (0.0-0.0); Mean Corp Hgb Conc 32.7 g/dL (32-36); Mean Corpuscular Volume 89.6 fL (81-99); Mean Platelet Vol. 11.7 fl (6.2-12.0); NRBC Flagged by Analyzer 0 % (0-5); Platelet Count 184 K/mm3 (150-450); RBC Distribution Width CV 12.5 % (11.6-14.6); RBC Distribution Width SD 40.9 fl (35.1-43.9); Red Blood Count 5.01 M/mm3 (4.2-5.4); White Blood Count 9.6 K/mm3 (4.4-11.0)
[2025-09-14 20:44] LABS: Lipase 22 U/L (13-75)
[2025-09-14 20:48] LABS: AST(SGOT) 18 U/L (<=31); Alanine Aminotransfer ALT/SGPT 13 U/L (<=34); Albumin, Serum 4.6 g/dL (3.5-5.0); Alkaline Phosphatase 80 U/L (35-104); Anion Gap 14 (5-15); BUN 13 mg/dL (4-19); BUN/Creat Ratio 12.7 RATIO (10-20); Calcium,Total 9.5 mg/dL (7.6-11.0); Carbon Dioxide 24.3 mmol/L (21.0-32.0); Chloride 102 mmol/L (98-108); Estimated Creatinine Clearance 62.40 ml/min (50-250); Globulin 3.1 g/dL (2.2-4.2); Glucose 118 mg/dL (70-99); Potassium 3.9 mmol/L (3.3-5.1)
[2025-09-14 21:15] VITALS: BP 165/85; PULSE 61; RESP 16; O2SAT 100
[2025-09-14 21:22] VITALS: BP 165/85; PULSE 61; RESP 16; TEMP 36.7; O2SAT 100
== END 2025-09-14 21:23 | disposition home or self-care (01) ==
PROVIDERS: Emergency Provider Emergency Medicine; PCP Family Medicine; Visit Provider Emergency Medicine
DX: R10.9 Unspecified abdominal pain (principal); B34.9 Viral infection, unspecified; I10 Essential (primary) hypertension; R11.2 Nausea with vomiting, unspecified; Z79.899 Other long term (current) drug therapy; F17.210 Nicotine dependence, cigarettes, uncomplicated
CPT/HCPCS: 80053; 83690; 85025; 96361; 96374; 99283; J2405